=== PATIENT | male | born 1935 | race Caucasian/White ===

== ENCOUNTER 2016-06-26 10:20 | Outpatient (CLI) | payer MEDICARE, OTHER | END 2016-06-26 10:21 | disposition home or self-care (01) | DX: Z79.01 Long term (current) use of anticoagulants (principal) ==

== ENCOUNTER 2016-07-02 10:27 | Outpatient (CLI) | payer MEDICARE, OTHER | END 2016-07-02 10:28 | disposition home or self-care (01) | DX: Z79.01 Long term (current) use of anticoagulants (principal) ==

== ENCOUNTER 2016-07-09 09:30 | Outpatient (CLI) | payer MEDICARE, OTHER | END 2016-07-09 09:31 | disposition home or self-care (01) | DX: Z79.01 Long term (current) use of anticoagulants (principal) ==

== ENCOUNTER 2016-07-11 10:40 | Day surgery (SDC) | payer MEDICARE, OTHER ==
[2016-07-11] MEDS ORDERED: LACTATED RINGERS 500 ML IV ONE (11:11)
[2016-07-11] MEDS ORDERED: TROPICAMIDE 1% OPHTH 2 ML DROPS OPTH ONE (11:15)
[2016-07-11] MEDS ORDERED: KETOROLAC 0.45% OPHTH DROPS OPTH ONE (11:15)
[2016-07-11] MEDS ORDERED: CYCLOPENTOLATE 1% OPHTH DROPS 2 ML OPTH ONE (11:15)
[2016-07-11] MEDS ORDERED: MIDAZOLAM 2 MG/2 ML VIAL IVP ONE (12:00)
[2016-07-11] MEDS ORDERED: LIDOCAINE-MPF 2% 5 ML VIAL IM ONE (12:00)
[2016-07-11] MEDS ORDERED: METOPROLOL 5 MG/5 ML VIAL IVP ONE (12:00)
[2016-07-11] MEDS ORDERED: PROPOFOL 200 MG/20 ML VIAL IVP ONE (12:00)
[2016-07-11] MEDS ORDERED: EPINEPHrine 1 MG/ML AMP IO ONE (12:12)
[2016-07-11] MEDS ORDERED: BRIMONIDINE 0.2% OPHTH DROPS 5 ML OPTH ONE (12:12)
[2016-07-11] MEDS ORDERED: levoFLOXacin 0.5% OPHTH DROPS 5 ML OPTH ONE (12:12)
[2016-07-11] MEDS ORDERED: PROPARACAINE 0.5% OPHTH DROPS 15 ML OPTH ONE (12:12)
[2016-07-11] MEDS ORDERED: TETRACAINE OPHTH DROPS 2 ML OPTH ONE (12:13)
[2016-07-11] MEDS ORDERED: CHONDR SULF/HYALURONATE SYRINGE IO ONE (12:13)
[2016-07-11] MEDS ORDERED: BSS/LIDOCAINE/EPINEPHRINE 1 ML SYRINGE IO ONE (12:13)
[2016-07-11] MEDS ORDERED: LACTATED RINGERS 1,000 ML IV ONE (12:25)
== END 2016-07-11 10:41 | disposition home or self-care (01) ==
PROC: 08RJ3JZ Replacement of Right Lens with Synthetic Substitute, Percutaneous Approach (ICD-10-PCS; principal; 2016-07-11 11:40)
DX: H25.11 Age-related nuclear cataract, right eye (principal); I10 Essential (primary) hypertension; Z87.891 Personal history of nicotine dependence; Z86.718 Personal history of other venous thrombosis and embolism
CPT/HCPCS: 66984; J7120

== ENCOUNTER 2016-07-16 10:05 | Outpatient (CLI) | payer MEDICARE, OTHER | END 2016-07-16 10:06 | disposition home or self-care (01) | DX: Z79.01 Long term (current) use of anticoagulants (principal) ==

== ENCOUNTER 2016-07-23 11:13 | Outpatient (CLI) | payer MEDICARE, OTHER | END 2016-07-23 11:14 | disposition home or self-care (01) | DX: Z79.01 Long term (current) use of anticoagulants (principal) ==

== ENCOUNTER 2016-07-31 09:45 | Outpatient (CLI) | payer MEDICARE, OTHER | END 2016-07-31 09:46 | disposition home or self-care (01) | DX: Z79.01 Long term (current) use of anticoagulants (principal) ==

== ENCOUNTER 2016-08-01 12:00 | Day surgery (SDC) | payer MEDICARE, OTHER ==
[~2016-08-01 12:00] MED LIST: MIDAZOLAM 2 MG/2 ML VIAL IVP ONE
[2016-08-01] MEDS ORDERED: LACTATED RINGERS 500 ML IV ONE (12:08)
[2016-08-01] MEDS ORDERED: KETOROLAC 0.45% OPHTH DROPS OPTH ONE (12:20)
[2016-08-01] MEDS ORDERED: CYCLOPENTOLATE 1% OPHTH DROPS 2 ML OPTH ONE (12:20)
[2016-08-01] MEDS ORDERED: TROPICAMIDE 1% OPHTH 2 ML DROPS OPTH ONE (12:20)
[2016-08-01] MEDS ORDERED: EPINEPHrine 1 MG/ML AMP IO ONE (12:43)
[2016-08-01] MEDS ORDERED: TETRACAINE OPHTH DROPS 2 ML OPTH ONE (12:43)
[2016-08-01] MEDS ORDERED: PROPARACAINE 0.5% OPHTH DROPS 15 ML OPTH ONE (12:43)
[2016-08-01] MEDS ORDERED: levoFLOXacin 0.5% OPHTH DROPS 5 ML OPTH ONE (12:43)
[2016-08-01] MEDS ORDERED: BSS/LIDOCAINE/EPINEPHRINE 1 ML SYRINGE IO ONE (12:43)
[2016-08-01] MEDS ORDERED: BRIMONIDINE 0.2% OPHTH DROPS 5 ML OPTH ONE (12:43)
[2016-08-01] MEDS ORDERED: CHONDR SULF/HYALURONATE SYRINGE IO ONE (12:43)
[2016-08-01] MEDS ORDERED: MIDAZOLAM 2 MG/2 ML VIAL IVP ONE (12:45)
== END 2016-08-01 12:01 | disposition home or self-care (01) ==
PROC: 08RK3JZ Replacement of Left Lens with Synthetic Substitute, Percutaneous Approach (ICD-10-PCS; principal; 2016-08-01 13:00)
DX: H25.12 Age-related nuclear cataract, left eye (principal); J44.9 Chronic obstructive pulmonary disease, unspecified; I12.9 Hypertensive chronic kidney disease with stage 1 through stage 4 chronic kidney disease, or unspecified chronic kidney disease; N18.3 Chronic kidney disease, stage 3 (moderate); R05 Cough; Z86.718 Personal history of other venous thrombosis and embolism; Z79.01 Long term (current) use of anticoagulants; Z87.891 Personal history of nicotine dependence; Z99.2 Dependence on renal dialysis
CPT/HCPCS: 66984; V2632; V2787

== ENCOUNTER 2016-08-06 10:29 | Outpatient (CLI) | payer MEDICARE, OTHER | END 2016-08-06 10:30 | LOC: LAB.S 10:29 | PROVIDERS: ATTEND Family Medicine | DX: Z79.01 Long term (current) use of anticoagulants (principal) | CPT/HCPCS: 85610 ==

== ENCOUNTER 2016-08-08 09:46 | Outpatient (CLI) | payer MEDICARE, OTHER | END 2016-08-08 09:47 | disposition home or self-care (01) | DX: N18.4 Chronic kidney disease, stage 4 (severe) (principal); D63.1 Anemia in chronic kidney disease; N25.81 Secondary hyperparathyroidism of renal origin; E78.5 Hyperlipidemia, unspecified; R31.9 Hematuria, unspecified; R80.9 Proteinuria, unspecified; E55.9 Vitamin D deficiency, unspecified; I48.91 Unspecified atrial fibrillation; I42.9 Cardiomyopathy, unspecified; N17.9 Acute kidney failure, unspecified ==

== ENCOUNTER 2016-08-13 10:39 | Outpatient (CLI) | payer MEDICARE, OTHER | END 2016-08-13 10:40 | disposition home or self-care (01) | DX: Z79.01 Long term (current) use of anticoagulants (principal) ==

== ENCOUNTER 2016-08-20 09:10 | Outpatient (CLI) | payer MEDICARE, OTHER | END 2016-08-20 09:11 | disposition home or self-care (01) | DX: Z79.01 Long term (current) use of anticoagulants (principal) ==

== ENCOUNTER 2016-08-27 14:09 | Outpatient (CLI) | payer MEDICARE, OTHER | END 2016-08-27 23:59 | LOC: LAB.S 14:09 | PROVIDERS: ATTEND Family Medicine | DX: Z79.01 Long term (current) use of anticoagulants (principal) | CPT/HCPCS: 85610 ==

== ENCOUNTER 2016-09-03 14:11 | Outpatient (CLI) | payer MEDICARE, OTHER | END 2016-09-03 14:12 | disposition home or self-care (01) | LOC: LAB.S 14:11 | PROVIDERS: ATTEND Family Medicine | DX: Z79.01 Long term (current) use of anticoagulants (principal) | CPT/HCPCS: 85610 ==

== ENCOUNTER 2016-09-11 09:08 | Outpatient (CLI) | payer MEDICARE, OTHER | END 2016-09-11 09:09 | disposition home or self-care (01) | DX: Z79.01 Long term (current) use of anticoagulants (principal) ==

== ENCOUNTER 2016-09-17 10:26 | Outpatient (CLI) | payer MEDICARE, OTHER | END 2016-09-17 10:27 | disposition home or self-care (01) | DX: Z79.01 Long term (current) use of anticoagulants (principal) ==

== ENCOUNTER 2016-09-24 08:00 | Outpatient (CLI) | payer MEDICARE, OTHER | END 2016-09-24 08:01 | disposition home or self-care (01) | DX: Z79.01 Long term (current) use of anticoagulants (principal) ==

== ENCOUNTER 2016-10-01 08:00 | Outpatient (CLI) | payer MEDICARE, OTHER | END 2016-10-01 08:01 | DX: Z79.01 Long term (current) use of anticoagulants (principal) ==

== ENCOUNTER 2016-10-08 09:59 | Outpatient (CLI) | payer MEDICARE, OTHER | END 2016-10-08 10:00 | disposition home or self-care (01) | DX: Z79.01 Long term (current) use of anticoagulants (principal) ==

== ENCOUNTER 2016-10-15 09:21 | Outpatient (CLI) | payer MEDICARE, OTHER | END 2016-10-15 09:22 | DX: Z79.01 Long term (current) use of anticoagulants (principal) ==

== ENCOUNTER 2016-10-22 08:40 | Outpatient (CLI) | payer MEDICARE, OTHER | END 2016-10-22 08:41 | DX: Z79.01 Long term (current) use of anticoagulants (principal) ==

== ENCOUNTER 2016-11-05 13:56 | Outpatient (CLI) | payer MEDICARE, OTHER | END 2016-11-05 13:57 | disposition home or self-care (01) | LOC: LAB.S 13:56 | PROVIDERS: ATTEND Family Medicine | DX: Z79.01 Long term (current) use of anticoagulants (principal) | CPT/HCPCS: 85610 ==

== ENCOUNTER 2016-11-12 13:43 | Outpatient (CLI) | payer MEDICARE, OTHER | END 2016-11-12 13:44 | disposition home or self-care (01) | LOC: LAB.S 13:43 | PROVIDERS: ATTEND Family Medicine | DX: Z79.01 Long term (current) use of anticoagulants (principal) | CPT/HCPCS: 85610 ==

== ENCOUNTER 2016-11-20 09:01 | Outpatient (CLI) | payer MEDICARE, OTHER | END 2016-11-20 09:02 | disposition home or self-care (01) | LOC: LAB.F 09:01 | PROVIDERS: ATTEND Family Medicine | DX: Z79.01 Long term (current) use of anticoagulants (principal) | CPT/HCPCS: 85610 ==

== ENCOUNTER 2016-11-26 08:49 | Outpatient (CLI) | payer MEDICARE, OTHER | END 2016-11-26 23:59 | disposition home or self-care (01) | LOC: LAB.S 08:49 | PROVIDERS: ATTEND Family Medicine | DX: Z79.01 Long term (current) use of anticoagulants (principal) | CPT/HCPCS: 85610 ==

== ENCOUNTER 2016-12-03 11:13 | Outpatient (CLI) | payer MEDICARE, OTHER | END 2016-12-03 23:59 | disposition home or self-care (01) | LOC: LAB.S 11:13 | PROVIDERS: ATTEND Family Medicine | DX: Z79.01 Long term (current) use of anticoagulants (principal) | CPT/HCPCS: 85610 ==

== ENCOUNTER 2016-12-10 15:10 | Outpatient (CLI) | payer MEDICARE, OTHER | END 2016-12-10 15:11 | disposition home or self-care (01) | LOC: LAB.S 15:10 | PROVIDERS: ATTEND Family Medicine | DX: Z79.01 Long term (current) use of anticoagulants (principal) | CPT/HCPCS: 85610 ==

== ENCOUNTER 2016-12-17 13:19 | Outpatient (CLI) | payer MEDICARE, OTHER | END 2016-12-17 13:20 | disposition home or self-care (01) | LOC: LAB.S 13:19 | PROVIDERS: ATTEND Family Medicine | DX: Z79.01 Long term (current) use of anticoagulants (principal) | CPT/HCPCS: 85610 ==

== ENCOUNTER 2016-12-24 11:18 | Outpatient (CLI) | payer MEDICARE, OTHER | END 2016-12-24 11:19 | disposition home or self-care (01) | LOC: LAB.S 11:18 | PROVIDERS: ATTEND Family Medicine | DX: Z79.01 Long term (current) use of anticoagulants (principal) | CPT/HCPCS: 85610 ==

== ENCOUNTER 2016-12-31 10:10 | Outpatient (CLI) | payer MEDICARE, OTHER | END 2016-12-31 10:11 | disposition home or self-care (01) | DX: Z79.01 Long term (current) use of anticoagulants (principal) ==

== ENCOUNTER 2017-01-07 07:07 | Outpatient (CLI) | payer MEDICARE, OTHER ==
[2017-01-07 18:42] LABS: BASOPHILS # (AUTO) 0.1 10^3/uL (0.0-0.1); BASOPHILS % (AUTO) 1.2 %; EOSINOPHILS # (AUTO) 0.2 10^3/uL (0.0-0.7); EOSINOPHILS % (AUTO) 3.1 %; HGB - HEMOGLOBIN 9.7 g/dL (14.0-18.0); MEAN CORPUSCULAR HGB CONC 33.3 g/dL (32.0-36.0); MEAN CORPUSCULAR VOLUME 105.2 fL (80.0-94.0); MEAN PLATELET VOLUME 9.5 fL (7.4-11.4); MONOCYTES # (AUTO) 0.8 10^3/uL (0.0-1.0); MONOCYTES % (AUTO) 16.1 %; NEUTROPHILS % (AUTO) 59.6 %; NUCLEATED RED BLOOD CELLS AUTO 0.1 /100WBC; RED BLOOD COUNT 2.76 10^6/uL (4.70-6.10); RED CELL DISTRIBUTION WIDTH 13.2 % (12.0-15.0); UNCORRECTED WHITE BLOOD COUNT 5.1 x10^3/uL; WHITE BLOOD COUNT 5.1 x10^3/uL (4.8-10.8)
[2017-01-07 19:06] LABS: ALBUMIN/GLOBULIN RATIO 0.9 (1.0-2.2); BILIRUBIN,TOTAL 0.5 mg/dL (0.2-1.0); CALCIUM 8.4 mg/dL (8.5-10.3); CREATININE 3.2 mg/dL (0.6-1.2)
== END 2017-01-07 07:08 | disposition home or self-care (01) ==
LOC: LAB.S 07:07
PROVIDERS: ATTEND Family Medicine
DX: N18.4 Chronic kidney disease, stage 4 (severe) (principal); D63.1 Anemia in chronic kidney disease; Z79.01 Long term (current) use of anticoagulants
CPT/HCPCS: 36415; 80053; 82570; 84156; 85025; 85610

== ENCOUNTER 2017-01-07 07:10 | Outpatient (CLI) | payer MEDICARE, OTHER | END 2017-01-07 07:11 | disposition home or self-care (01) | LOC: LAB.S 07:10 | PROVIDERS: ATTEND Internal Medicine Nephrology | DX: Z53.9 Procedure and treatment not carried out, unspecified reason (principal) | CPT/HCPCS: 36415; 80053; 82570; 84156; 85025 ==

== ENCOUNTER 2017-01-11 18:23 | Emergency (ER) | payer MEDICARE, OTHER ==
--- NOTE | 2017-01-11 19:08 | ED Physician Documentation ---
PD HPI ABD PAIN - Stated complaint Stated Complaint: ABD PX - Chief complaint Chief Complaint: Abd Pain - History obtained from History obtained from: Patient - History of Present Illness Timing - onset: How many days ago (3) Timing - duration: Days (3) Timing - details: Intermittant Pain level max: 8 Pain level now: 0 Quality: Aching, Pain Location: Other (L flank) Improved by: Other (nothing) Worsened by: Other (nothing) Associated symptoms: Dysuria ("like squigglies"). No: Fever, Nausea, Vomiting, Hematemesis, Diarrhea, Constipation, Melena, Hematochezia, Hematuria, Chest pain , Dizzy, Near syncope / syncope, Loss of appetite Similar symptoms before: Has not had sx before Recently seen: Not recently seen Review of Systems Ten Systems: 10 systems reviewed and negative Constitutional: denies: Fever, Chills Ears: denies: Ear pain Nose: denies: Rhinorrhea / runny nose, Congestion Throat: denies: Sore throat Cardiac: denies: Chest pain / pressure Respiratory: denies: Cough GI: denies: Nausea, Vomiting, Diarrhea Skin: denies: Rash Musculoskeletal: denies: Neck pain, Back pain Neurologic: denies: Headache PD PAST MEDICAL HISTORY - Past Medical History Cardiovascular: Hypertension Respiratory: None Endocrine/Autoimmune: None GI: None : Renal insuffiency HEENT: Chronic vision loss, Chronic hearing loss Psych: None Musculoskeletal: None Derm: None - Past Surgical History Past Surgical History: Yes General: Colonoscopy, Other - Present Medications Home Medications: Ambulatory Orders Medication Instructions Recorded Confirmed Warfarin Sodium [Coumadin] 04/16/14 04/16/14 Amlodipine Besylate [Norvasc] 2.5 mg PO DAILY 07/11/16 08/01/16 Calcium Acetate 667 mg PO DAILY 07/11/16 08/01/16 Carvedilol 25 mg PO DAILY 07/11/16 08/01/16 Finasteride 5 mg PO DAILY 07/11/16 08/01/16 Furosemide 20 mg PO DAILY 07/11/16 08/01/16 Multivitamin [Multivitamins] 1 each PO DAILY 07/11/16 08/01/16 Sodium Bicarbonate 650 mg PO DAILY 07/11/16 08/01/16 Ubidecarenone/Vitamin E Mixed 1 07/11/16 [Oba43-Enr E 100 mg-10 Unit Sfg] Warfarin [Coumadin] 2 mg PO DAILY 07/11/16 08/01/16 Hydrocodone/Acetaminophen 1 - 2 each PO Q6H PRN #10 tablet 01/11/17 [Hydrocodon-Acetaminophen 5-325] - Allergies Allergies/Adverse Reactions: Allergies Allergy/AdvReac Type Severity Reaction Status Date / Time No Known Drug Allergies Allergy Verified 08/01/16 12:17 - Social History Does the pt smoke?: No Smoking Status: Never smoker Does the pt drink ETOH?: No Does the pt have substance abuse?: No - Immunizations Immunizations are current?: No - POLST Patient has POLST: No PD ED PE NORMAL - Vitals Vital signs reviewed: Yes - General General: Alert and oriented X 3, No acute distress - HEENT HEENT: Moist mucous membranes - Neck Neck: Supple, no meningeal sign - Cardiac Cardiac: RRR - Respiratory Respiratory: No respiratory distress, Clear bilaterally - Abdomen Abdomen: Soft, Non tender, Non distended - Back Back: No CVA TTP, No spinal TTP - Derm Derm: Warm and dry - Neuro Neuro: Alert and oriented X 3 - Psych Psych: Normal mood, Normal affect Results - Vitals Vitals: Vital Signs - 24 hr 01/11/17 01/11/17 18:33 21:05 Temperature 36.3 C L Heart Rate 73 63 Respiratory 16 16 Rate Blood Pressure 124/48 L 131/54 H O2 Saturation 98 97 Oxygen O2 Source Room air - Labs Labs: Laboratory Tests 01/11/17 01/11/17 01/11/17 19:00 19:00 19:00 WBC 6.5 RBC 3.01 L Hgb 10.4 L Hct 31.3 L MCV 104.2 H MCH 34.6 H MCHC 33.2 RDW 13.3 Plt Count 150 MPV 9.1 Neut # 4.7 Lymph # 0.8 L [place] # 0.8 Eos # 0.1 Baso # 0.1 Absolute Nucleated RBC 0.00 Nucleated RBCs 0.0 Sodium 137 Potassium 4.4 Chloride 113 H Carbon Dioxide 15 L Anion Gap 9.0 BUN 68 H Creatinine 4.2 H Estimated GFR (MDRD) 14 L Glucose 100 Calcium 8.3 L Total Bilirubin 0.8 AST 20 ALT 13 Alkaline Phosphatase 48 Total Protein 7.0 Albumin 3.3 Globulin 3.7 Albumin/Globulin Ratio 0.9 L Lipase 26 Urine Color YELLOW Urine Clarity CLEAR Urine pH 5.5 Ur Specific [place] 1.015 Urine Protein TRACE Urine Glucose (UA) NEGATIVE Urine Ketones NEGATIVE Urine Occult Blood TRACE-LYSE Urine Nitrite NEGATIVE Urine Bilirubin NEGATIVE Urine Urobilinogen 0.2 (NORMAL) Ur Leukocyte Esterase NEGATIVE Ur Microscopic Review NOT INDICATED Urine Culture Comments NOT INDICATED - Rads (name of study) abd/pelvis CT Radiology: Prelim report reviewed, EMP read contemporaneously, See rad report ( Bilateral nephrolithiasis. Mild bilateral renal atrophy. Two very tiny stones in the distal 2 cm left ureter causing mild obstruction. Colonic diverticulosis. Chronic lung disease. Moderate cardiomegaly. No evidence of metastatic disease. ) PD MEDICAL DECISION MAKING - ED course Complexity details: reviewed results, re-evaluated patient, considered differential, d/w patient, d/w family ED course: Patient is an 81-year-old gentleman who presents to the emergency department with left flank pain. Is found to have 2 small ureteral stones in the distal portion of the left ureter with mild obstruction. Pain resolved in the emergency department. He is very well-appearing, nontoxic. Afebrile. His CO2 is low and his creatinine is elevated, this has occurred in the past when he becomes dehydrated, therefore given IV fluids and will have him follow-up closely with his doctor to repeat these laboratory values. He will return if he worsens. Patient counseled regarding signs and symptoms for which I believe and urgent re-evaluation would be necessary. Patient with good understanding of and agreement to plan and is comfortable going home at this time This document was made in part using voice recognition software. While efforts are made to proofread this document, sound alike and grammatical errors may occur. Departure - Departure Disposition: 01 Home, Self Care Clinical Impression: Ureteral stone, Dehydration, Metabolic acidosis, Acute on chronic renal failure Condition: Good Instructions: ED Dehydration, ED Stone Renal W Colic Follow-Up: Floridalma Riddle MD [Primary Care Provider] - Within 3 Days Prescriptions: Hydrocodone/Acetaminophen [Hydrocodon-Acetaminophen 5-325] 1 - 2 each PO Q6H PRN #10 tablet PRN Reason: pain Comments: You need to have your creatinine and CO2 level rechecked on your blood work with a basic metabolic panel within 3 days, this can be ordered by your doctor.. Return sooner if you worsen. You need to increase your water intake at home. Discharge Date/Time: 01/11/17 21:25
[2017-01-11 19:18] LABS: BILIRUBIN,URINE NEGATIVE (NEGATIVE); PH,URINE 5.5 PH (5.0-7.5); UA CHARGE (STRIP ONLY) YES; UR CULTURE IF IND NOT INDICATED
[2017-01-11 19:20] LABS: BASOPHILS # (AUTO) 0.1 10^3/uL (0.0-0.1); BASOPHILS % (AUTO) 0.8 %; EOSINOPHILS # (AUTO) 0.1 10^3/uL (0.0-0.7); HCT - HEMATOCRIT 31.3 % (42.0-52.0); HGB - HEMOGLOBIN 10.4 g/dL (14.0-18.0); LYMPHOCYTES # (AUTO) 0.8 10^3/uL (1.5-3.5); LYMPHOCYTES % (AUTO) 12.7 %; MEAN CORPUSCULAR HEMOGLOBIN 34.6 pg (27.0-31.0); MEAN CORPUSCULAR HGB CONC 33.2 g/dL (32.0-36.0); MEAN CORPUSCULAR VOLUME 104.2 fL (80.0-94.0); MEAN PLATELET VOLUME 9.1 fL (7.4-11.4); MONOCYTES # (AUTO) 0.8 10^3/uL (0.0-1.0); MONOCYTES % (AUTO) 12.5 %; NEUTROPHILS # (AUTO) 4.7 10^3/uL (1.5-6.6); RED BLOOD COUNT 3.01 10^6/uL (4.70-6.10); RED CELL DISTRIBUTION WIDTH 13.3 % (12.0-15.0); UNCORRECTED WHITE BLOOD COUNT 6.5 x10^3/uL; WHITE BLOOD COUNT 6.5 x10^3/uL (4.8-10.8)
[2017-01-11 19:29] LABS: ALBUMIN/GLOBULIN RATIO 0.9 (1.0-2.2); BILIRUBIN,TOTAL 0.8 mg/dL (0.2-1.0); CALCIUM 8.3 mg/dL (8.5-10.3); CREATININE 4.2 mg/dL (0.6-1.2); POTASSIUM 4.4 mmol/L (3.5-5.0)
[2017-01-11] MEDS ORDERED: SODIUM CHLORIDE 0.9% 500 ML IV ONE (19:31)
--- NOTE | 2017-01-11 20:35 | CT Preliminary Report ---
Exam: CT Abdomen/Pelvis W/O IMPRESSION: 1. Bilateral nephrolithiasis. Mild bilateral renal atrophy. 2. 2 very tiny stones in the distal 2 cm left ureter causing mild obstruction. 3. Colonic diverticulosis. 4. Chronic lung disease. 5. Moderate cardiomegaly.. 6. No evidence of metastatic disease. [facility] SITE ID: [id number]
[2017-01-11] MEDS ORDERED: HYDROcod/ACETAM 5/325 MG TABLET PO STA (20:49)
--- NOTE | 2017-01-11 21:01 | CT Report ---
EXAM: CT ABDOMEN AND PELVIS EXAM DATE: 01/11/2017 07:36 p.m. CLINICAL HISTORY: Esophageal cancer diagnosed 6-7 years ago. Remote bowel resection. Chronic renal di sease. Patient presents now with left flank pain. COMPARISONS: None. TECHNIQUE: Routine helical CT imaging was performed through the abdomen and pelvis. IV contrast: None . Enteric contrast: No. Reconstructions: Coronal and sagittal. In accordance with CT protocol optimization, one or more of the following dose reduction techniques w ere utilized for this exam: automated exposure control, adjustment of mA and/or KV based on patient s ize, or use of iterative reconstructive technique. FINDINGS: Lung Bases: Chronic lung disease. Moderate cardiomegaly. Moderate hiatal hernia. Liver: Normal. No masses. Gallbladder/Bile Ducts: Unremarkable. Spleen: Normal. Pancreas: Normal. Adrenal Glands: Normal. Kidneys: Mild bilateral renal atrophy. Multiple 1 and 2 mm stones, both kidneys. No right hydronephrosis. Right ureter is small without calcifications. Mild left hydronephrosis and moderate left peripelvic edema. Mild dilatation of the left ureter. 2 mm stone in the distal left ureter, 1 cm from the ureterovesica l junction, axial image 128 coronal image 52. An additional stone in the distal left ureter, 1 cm proximal to the larger stone, axial image 125 cor onal image 56. Peritoneal Cavity/Bowel: Diverticula off the colon. No free fluid, free air or adenopathy. No masses or acute inflammatory process. The appendix is well visualized and normal. Pelvic Organs: Normal. The bladder and visualized pelvic organs are within normal limits. Vasculature: No aneurysms or other significant abnormality. Infrarenal abdominal aorta measures 2.6 c m in maximum dimension. Bones: No significant abnormality. Other: None. IMPRESSION: 1. Bilateral nephrolithiasis. Mild bilateral renal atrophy. 2. Two very tiny stones in the distal 2 cm left ureter causing mild obstruction. 3. Colonic diverticulosis. 4. Chronic lung disease. 5. Moderate cardiomegaly. 6. No evidence of metastatic disease. [facility] Referring Provider Line: [phone] SITE ID: [id number]
[2017-01-11 21:05] VITALS: BP 131/54
[2017-01-11] MEDS ORDERED: HYDROcod/ACETAM 5/325 MG TABLET ONE (21:15)
== END 2017-01-11 21:25 | disposition home or self-care (01) ==
LOC: ED 18:23
DX: R10.32 Left lower quadrant pain (principal); N20.1 Calculus of ureter; E86.0 Dehydration; E87.2 Acidosis; I12.9 Hypertensive chronic kidney disease with stage 1 through stage 4 chronic kidney disease, or unspecified chronic kidney disease; N18.9 Chronic kidney disease, unspecified; N17.9 Acute kidney failure, unspecified; Z79.01 Long term (current) use of anticoagulants
CPT/HCPCS: 36415; 74176; 80053; 81003; 83690; 85025; 99283; 99285; A9270; 81001; 87086

== ENCOUNTER 2017-01-14 08:00 | Outpatient (CLI) | payer MEDICARE, OTHER | END 2017-01-14 08:01 | disposition home or self-care (01) | LOC: LAB.F 08:00 | PROVIDERS: ATTEND Family Medicine | DX: Z79.01 Long term (current) use of anticoagulants (principal) | CPT/HCPCS: 85610 ==

== ENCOUNTER 2017-01-21 08:00 | Outpatient (CLI) | payer MEDICARE, OTHER | END 2017-01-21 08:01 | disposition home or self-care (01) | LOC: LAB.S 08:00 | PROVIDERS: ATTEND Family Medicine | DX: Z79.01 Long term (current) use of anticoagulants (principal) | CPT/HCPCS: 85610 ==

== ENCOUNTER 2017-01-28 08:00 | Outpatient (CLI) | payer MEDICARE, OTHER | END 2017-01-28 08:01 | disposition home or self-care (01) | LOC: LAB.S 08:00 | PROVIDERS: ATTEND Family Medicine | DX: Z79.01 Long term (current) use of anticoagulants (principal) | CPT/HCPCS: 85610 ==

== ENCOUNTER 2017-02-04 08:00 | Outpatient (CLI) | payer MEDICARE, OTHER | END 2017-02-04 08:01 | LOC: LAB.S 08:00 | PROVIDERS: ATTEND Family Medicine | DX: Z79.01 Long term (current) use of anticoagulants (principal) | CPT/HCPCS: 85610 ==

== ENCOUNTER 2017-02-11 11:01 | Outpatient (CLI) | payer MEDICARE, OTHER | END 2017-02-11 11:02 | disposition home or self-care (01) | LOC: LAB.S 11:01 | PROVIDERS: ATTEND Family Medicine | DX: Z79.01 Long term (current) use of anticoagulants (principal) | CPT/HCPCS: 85610 ==

== ENCOUNTER 2017-02-18 10:05 | Outpatient (CLI) | payer MEDICARE, OTHER | END 2017-02-18 10:06 | disposition home or self-care (01) | LOC: LAB.S 10:05 | PROVIDERS: ATTEND Family Medicine | DX: Z79.01 Long term (current) use of anticoagulants (principal) | CPT/HCPCS: 85610 ==

== ENCOUNTER 2017-02-26 13:58 | Outpatient (CLI) | payer MEDICARE, OTHER | END 2017-02-26 13:59 | disposition home or self-care (01) | LOC: LAB.F 13:58 | PROVIDERS: ATTEND Family Medicine | DX: Z79.01 Long term (current) use of anticoagulants (principal) | CPT/HCPCS: 85610 ==

== ENCOUNTER 2017-03-04 13:38 | Outpatient (CLI) | payer MEDICARE, OTHER | END 2017-03-04 13:39 | disposition home or self-care (01) | LOC: LAB.S 13:38 | PROVIDERS: ATTEND Family Medicine | DX: Z79.01 Long term (current) use of anticoagulants (principal) | CPT/HCPCS: 85610 ==

== ENCOUNTER 2017-03-11 08:00 | Outpatient (CLI) | payer MEDICARE, OTHER | END 2017-03-11 08:01 | disposition home or self-care (01) | LOC: LAB.S 08:00 | PROVIDERS: ATTEND Family Medicine | DX: Z79.01 Long term (current) use of anticoagulants (principal) | CPT/HCPCS: 85610 ==

== ENCOUNTER 2017-03-18 14:05 | Outpatient (CLI) | payer MEDICARE, OTHER | END 2017-03-18 14:06 | disposition home or self-care (01) | LOC: LAB.S 14:05 | PROVIDERS: ATTEND Family Medicine | DX: Z79.01 Long term (current) use of anticoagulants (principal) | CPT/HCPCS: 85610 ==

== ENCOUNTER 2017-03-25 11:47 | Emergency (ER) | payer MEDICARE, OTHER ==
--- NOTE | 2017-03-25 13:59 | ED Physician Documentation ---
PD HPI ABD PAIN - Stated complaint Stated Complaint: STOMACH PX - Chief complaint Chief Complaint: Abd Pain - History obtained from History obtained from: Patient, Family - History of Present Illness Timing - onset: Yesterday Timing - duration: Hours Timing - details: Abrupt onset, Still present, Waxing and waning Quality: Sharp, Pain Location: RUQ Radiation: Right flank Improved by: Other (nothing) Worsened by: Other (nothing) Associated symptoms: Nausea. No: Vomiting Similar symptoms before: Diagnosis (kidneystones) Recently seen: Clinic - Additional information Additional information: 82-year-old male with a history of kidney stones and chronic kidney disease has developed pain on the right side. He states his pain is similar to what he had in December when he had kidney stone and was seen here. He took some pain medication he had left over from that prior incident and this was able to get him through the night. He comes in now with severe pain in the right side that has migrated down into the right lower quadrant. Review of Systems Constitutional: denies: Fever, Chills, Myalgias Eyes: denies: Decreased vision Ears: denies: Ear pain Nose: denies: Congestion Throat: denies: Sore throat Cardiac: denies: Chest pain / pressure Respiratory: denies: Cough GI: reports: Abdominal Pain, Nausea. denies: Vomiting, Constipation, Diarrhea : denies: Dysuria, Frequency Skin: denies: Rash Musculoskeletal: reports: Back pain. denies: Neck pain PD PAST MEDICAL HISTORY - Past Medical History Past Medical History: Yes Cardiovascular: Hypertension Respiratory: None Endocrine/Autoimmune: None GI: None : Renal insuffiency HEENT: Chronic vision loss, Chronic hearing loss Psych: None Musculoskeletal: None Derm: None - Past Surgical History Past Surgical History: Yes General: Colonoscopy, Other - Present Medications Home Medications: Ambulatory Orders Medication Instructions Recorded Confirmed Warfarin Sodium [Coumadin] 04/16/14 04/16/14 Amlodipine Besylate [Norvasc] 2.5 mg PO DAILY 07/11/16 08/01/16 Calcium Acetate 667 mg PO DAILY 07/11/16 08/01/16 Carvedilol 25 mg PO DAILY 07/11/16 08/01/16 Finasteride 5 mg PO DAILY 07/11/16 08/01/16 Furosemide 20 mg PO DAILY 07/11/16 08/01/16 Multivitamin [Multivitamins] 1 each PO DAILY 07/11/16 08/01/16 Sodium Bicarbonate 650 mg PO DAILY 07/11/16 08/01/16 Ubidecarenone/Vitamin E Mixed 1 07/11/16 [Huh34-Ual E 100 mg-10 Unit Sfg] Warfarin [Coumadin] 2 mg PO DAILY 07/11/16 08/01/16 Hydrocodone/Acetaminophen 1 - 2 each PO Q6H PRN #10 tablet 01/11/17 [Hydrocodon-Acetaminophen 5-325] HYDROcod/ACETAM 5/325 [[place] 5/325] 1 - 2 ea PO Q6H PRN #20 tablet 03/25/17 - Allergies Allergies/Adverse Reactions: Allergies Allergy/AdvReac Type Severity Reaction Status Date / Time No Known Drug Allergies Allergy Verified 08/01/16 12:17 - Social History Does the pt smoke?: No Smoking Status: Never smoker Does the pt drink ETOH?: No Does the pt have substance abuse?: No - Immunizations Immunizations are current?: No - POLST Patient has POLST: No PD ED PE NORMAL - Vitals Vital signs reviewed: Yes (hypertensive ) - General General: Alert and oriented X 3, No acute distress, Well developed/nourished - HEENT HEENT: Atraumatic - Respiratory Respiratory: No respiratory distress - Abdomen Abdomen: Soft, Non tender, No organomegaly - Back Back: No CVA TTP, No spinal TTP - Derm Derm: Normal color, Warm and dry, No rash - Extremities Extremities: No deformity, No edema - Neuro Neuro: Alert and oriented X 3, No motor deficit, No sensory deficit, Normal speech - Psych Psych: Normal mood, Normal affect Results - Vitals Vitals: Vital Signs - 24 hr 03/25/17 03/25/17 11:58 14:16 Temperature 36.4 C L 36.7 C Heart Rate 70 72 Respiratory 16 16 Rate Blood Pressure 165/64 H 162/62 H O2 Saturation 94 99 Oxygen O2 Source Room air - Labs Labs: Laboratory Tests 03/25/17 14:06 Urine Color YELLOW Urine Clarity CLEAR Urine pH 6.0 Ur Specific [place] 1.015 Urine Protein NEGATIVE Urine Glucose (UA) NEGATIVE Urine Ketones NEGATIVE Urine Occult Blood SMALL H Urine Nitrite NEGATIVE Urine Bilirubin NEGATIVE Urine Urobilinogen 0.2 (NORMAL) Ur Leukocyte Esterase NEGATIVE Urine RBC 0-5 Urine WBC 0-3 Ur Squamous Epith Cells RARE Squamous Urine Bacteria None Seen Ur Microscopic Review INDICATED Urine Culture Comments NOT INDICATED Procedures - Bedside sono Bedside sono by EMP: With use of bedside ultrasound the right kidney is imaged and there is evidence of hydronephrosis. The kidney is sonographically nontender. PD MEDICAL DECISION MAKING - ED course Complexity details: reviewed old records, reviewed results, re-evaluated patient , considered differential, d/w patient, d/w family ED course: 82-year-old male with a prior history of kidney stone has developed symptoms typical for him from previously and this time it is on the right side. I reviewed the patient's CT scan from December of this year which demonstrated a number of small stones in the right kidney as many as 10. There were stones in the left kidney as well. Here in the emergency department I was able to demonstrate hydronephrosis on the right kidney And I have forgot on CT scanning of the abdomen pelvis with the assumption that the stones seen recently are small and should pass without incident. I do not think the patient's pain is related to some other phenomena as he does otherwise look well. He has been able to control his pain with oral hydrocodone. His urine is checked for infection. Departure - Departure Disposition: 01 Home, Self Care Clinical Impression: Ureteral stone Instructions: ED Stone Renal W Colic Follow-Up: Your, doctor [Other] Prescriptions: HYDROcod/ACETAM 5/325 [[place] 5/325] 1 - 2 ea PO Q6H PRN #20 tablet PRN Reason: Pain
[2017-03-25 14:18] VITALS: BP 162/62
[2017-03-25 14:20] LABS: BILIRUBIN,URINE NEGATIVE (NEGATIVE)
[2017-03-25 14:21] LABS: UA w/ MICROSCOPIC CHARGE YES
[2017-03-25 14:35] LABS: WBC,URINE 0-3 /HPF (0-3)
[2017-03-25 14:36] LABS: UR CULTURE IF IND NOT INDICATED
== END 2017-03-25 14:52 | disposition home or self-care (01) ==
LOC: ED 11:47
DX: N20.1 Calculus of ureter (principal); I12.9 Hypertensive chronic kidney disease with stage 1 through stage 4 chronic kidney disease, or unspecified chronic kidney disease; N18.9 Chronic kidney disease, unspecified
CPT/HCPCS: 81001; 81003; 87086; 99283; 99284

== ENCOUNTER 2017-03-26 15:21 | Outpatient (CLI) | payer MEDICARE, OTHER | END 2017-03-26 15:22 | disposition home or self-care (01) | LOC: LAB.F 15:21 | PROVIDERS: ATTEND Family Medicine | DX: Z79.01 Long term (current) use of anticoagulants (principal) | CPT/HCPCS: 85610 ==

== ENCOUNTER 2017-04-01 08:00 | Outpatient (CLI) | payer MEDICARE, OTHER | END 2017-04-01 08:01 | LOC: LAB.S 08:00 | PROVIDERS: ATTEND Family Medicine | DX: Z79.01 Long term (current) use of anticoagulants (principal) | CPT/HCPCS: 85610 ==

== ENCOUNTER 2017-04-08 10:28 | Outpatient (CLI) | payer MEDICARE, OTHER | END 2017-04-08 10:29 | LOC: LAB.S 10:28 | PROVIDERS: ATTEND Family Medicine | DX: Z79.01 Long term (current) use of anticoagulants (principal) | CPT/HCPCS: 85610 ==

== ENCOUNTER 2017-04-15 13:53 | Outpatient (CLI) | payer MEDICARE, OTHER | END 2017-04-15 13:54 | disposition home or self-care (01) | LOC: LAB.S 13:53 | PROVIDERS: ATTEND Family Medicine | DX: Z79.01 Long term (current) use of anticoagulants (principal) | CPT/HCPCS: 85610 ==

== ENCOUNTER 2017-05-07 14:27 | Outpatient (CLI) | payer MEDICARE, OTHER | END 2017-05-07 14:28 | disposition home or self-care (01) | LOC: LAB.F 14:27 | PROVIDERS: ATTEND Family Medicine | DX: Z79.01 Long term (current) use of anticoagulants (principal) | CPT/HCPCS: 85610 ==

== ENCOUNTER 2017-05-13 15:35 | Outpatient (CLI) | payer MEDICARE, OTHER | END 2017-05-13 15:36 | disposition home or self-care (01) | LOC: LAB.S 15:35 | PROVIDERS: ATTEND Family Medicine | DX: Z79.01 Long term (current) use of anticoagulants (principal) | CPT/HCPCS: 85610 ==

== ENCOUNTER 2017-05-20 14:02 | Outpatient (CLI) | payer MEDICARE, OTHER | END 2017-05-20 14:03 | LOC: LAB.S 14:02 | PROVIDERS: ATTEND Family Medicine | DX: Z79.01 Long term (current) use of anticoagulants (principal) | CPT/HCPCS: 85610 ==

== ENCOUNTER 2017-05-27 13:24 | Outpatient (CLI) | payer MEDICARE, OTHER | END 2017-05-27 13:25 | disposition home or self-care (01) | LOC: LAB.S 13:24 | PROVIDERS: ATTEND Family Medicine | DX: Z79.01 Long term (current) use of anticoagulants (principal) | CPT/HCPCS: 85610 ==

== ENCOUNTER 2017-06-03 13:59 | Outpatient (CLI) | payer MEDICARE, OTHER | END 2017-06-03 14:00 | disposition home or self-care (01) | LOC: LAB.S 13:59 | PROVIDERS: ATTEND Family Medicine | DX: Z79.01 Long term (current) use of anticoagulants (principal) | CPT/HCPCS: 85610 ==

== ENCOUNTER 2017-06-10 08:00 | Outpatient (CLI) | payer MEDICARE, OTHER | END 2017-06-10 08:01 | disposition home or self-care (01) | LOC: LAB.S 08:00 | PROVIDERS: ATTEND Family Medicine | DX: Z79.01 Long term (current) use of anticoagulants (principal) | CPT/HCPCS: 85610 ==

== ENCOUNTER 2017-06-18 14:16 | Outpatient (CLI) | payer MEDICARE, OTHER | END 2017-06-18 14:17 | disposition home or self-care (01) | LOC: LAB.F 14:16 | PROVIDERS: ATTEND Family Medicine | DX: Z79.01 Long term (current) use of anticoagulants (principal) | CPT/HCPCS: 85610 ==

== ENCOUNTER 2017-06-25 13:48 | Outpatient (CLI) | payer MEDICARE, OTHER | END 2017-06-25 13:49 | disposition home or self-care (01) | LOC: LAB.F 13:48 | PROVIDERS: ATTEND Family Medicine | DX: Z79.01 Long term (current) use of anticoagulants (principal) | CPT/HCPCS: 85610 ==

== ENCOUNTER 2017-07-01 14:43 | Outpatient (CLI) | payer MEDICARE, OTHER | END 2017-07-01 14:44 | disposition home or self-care (01) | LOC: LAB.S 14:43 | PROVIDERS: ATTEND Family Medicine | DX: Z79.01 Long term (current) use of anticoagulants (principal) | CPT/HCPCS: 85610 ==

== ENCOUNTER 2017-07-15 08:00 | Outpatient (CLI) | payer MEDICARE, OTHER | END 2017-07-15 08:01 | disposition home or self-care (01) | LOC: LAB.S 08:00 | PROVIDERS: ATTEND Family Medicine | DX: Z79.01 Long term (current) use of anticoagulants (principal) | CPT/HCPCS: 85610 ==

== ENCOUNTER 2017-07-29 14:24 | Outpatient (CLI) | payer MEDICARE, OTHER | END 2017-07-29 14:25 | disposition home or self-care (01) | LOC: LAB.S 14:24 | PROVIDERS: ATTEND Family Medicine | DX: Z79.01 Long term (current) use of anticoagulants (principal) | CPT/HCPCS: 85610 ==

== ENCOUNTER 2017-08-13 14:32 | Outpatient (CLI) | payer MEDICARE, OTHER | END 2017-08-13 14:33 | disposition home or self-care (01) | LOC: LAB.F 14:32 | PROVIDERS: ATTEND Family Medicine | DX: Z79.01 Long term (current) use of anticoagulants (principal) | CPT/HCPCS: 85610 ==

== ENCOUNTER → 2017-08-19 | Outpatient (CLI) | payer MEDICARE, OTHER | LOC: LAB.S 08:00 | PROVIDERS: ATTEND Family Medicine | DX: Z79.01 Long term (current) use of anticoagulants (principal) | CPT/HCPCS: 85610 ==

== ENCOUNTER 2017-09-09 08:00 | Outpatient (CLI) | payer MEDICARE, OTHER | END 2017-09-09 08:01 | disposition home or self-care (01) | LOC: LAB.S 08:00 | PROVIDERS: ATTEND Family Medicine | DX: Z79.01 Long term (current) use of anticoagulants (principal) | CPT/HCPCS: 85610 ==

== ENCOUNTER 2017-09-26 09:50 | Outpatient (CLI) | payer MEDICARE, OTHER | END 2017-09-26 09:51 | disposition home or self-care (01) | LOC: LAB.F 09:50 | PROVIDERS: ATTEND Family Medicine | DX: Z79.01 Long term (current) use of anticoagulants (principal) | CPT/HCPCS: 85610 ==

== ENCOUNTER 2017-10-07 08:00 | Outpatient (CLI) | payer MEDICARE, OTHER | END 2017-10-07 08:01 | LOC: LAB.S 08:00 | PROVIDERS: ATTEND Family Medicine | DX: Z79.01 Long term (current) use of anticoagulants (principal) | CPT/HCPCS: 85610 ==

== ENCOUNTER 2017-11-04 13:38 | Outpatient (CLI) | payer MEDICARE, OTHER | END 2017-11-04 13:39 | disposition home or self-care (01) | LOC: LAB.S 13:38 | PROVIDERS: ATTEND Family Medicine | DX: Z79.01 Long term (current) use of anticoagulants (principal) | CPT/HCPCS: 85610 ==

== ENCOUNTER 2017-11-25 14:37 | Outpatient (CLI) | payer MEDICARE, OTHER | END 2017-11-25 14:38 | disposition home or self-care (01) | LOC: LAB.S 14:37 | PROVIDERS: ATTEND Family Medicine | DX: Z79.01 Long term (current) use of anticoagulants (principal) | CPT/HCPCS: 85610 ==

== ENCOUNTER 2017-12-23 15:05 | Outpatient (CLI) | payer MEDICARE, OTHER | END 2017-12-23 15:06 | LOC: LAB.S 15:05 | PROVIDERS: ATTEND Family Medicine | DX: Z79.01 Long term (current) use of anticoagulants (principal) | CPT/HCPCS: 85610 ==

== ENCOUNTER 2018-01-06 10:20 | Outpatient (CLI) | payer MEDICARE, OTHER | END 2018-01-06 10:21 | LOC: LAB.S 10:20 | PROVIDERS: ATTEND Family Medicine | DX: Z79.01 Long term (current) use of anticoagulants (principal) | CPT/HCPCS: 85610 ==

== ENCOUNTER 2018-01-13 08:00 | Outpatient (CLI) | payer MEDICARE, OTHER | END 2018-01-13 08:01 | disposition home or self-care (01) | LOC: LAB.S 08:00 | PROVIDERS: ATTEND Family Medicine | DX: Z79.01 Long term (current) use of anticoagulants (principal) | CPT/HCPCS: 85610 ==

== ENCOUNTER 2018-02-03 14:19 | Outpatient (CLI) | payer MEDICARE, OTHER | END 2018-02-03 14:20 | disposition home or self-care (01) | LOC: LAB.S 14:19 | PROVIDERS: ATTEND Family Medicine | DX: Z79.01 Long term (current) use of anticoagulants (principal) | CPT/HCPCS: 85610 ==

== ENCOUNTER 2018-02-17 09:44 | Outpatient (CLI) | payer MEDICARE, OTHER | END 2018-02-17 09:45 | disposition home or self-care (01) | LOC: LAB.S 09:44 | PROVIDERS: ATTEND Family Medicine | DX: Z79.01 Long term (current) use of anticoagulants (principal) | CPT/HCPCS: 85610 ==

== ENCOUNTER 2018-03-03 14:28 | Outpatient (CLI) | payer MEDICARE, OTHER | END 2018-03-03 14:29 | disposition home or self-care (01) | LOC: LAB.S 14:28 | PROVIDERS: ATTEND Family Medicine | DX: Z79.01 Long term (current) use of anticoagulants (principal) | CPT/HCPCS: 85610 ==

== ENCOUNTER 2018-03-24 10:47 | Outpatient (CLI) | payer MEDICARE, OTHER | END 2018-03-24 10:48 | disposition home or self-care (01) | LOC: LAB.F 10:47 | PROVIDERS: ATTEND Family Medicine | DX: Z79.01 Long term (current) use of anticoagulants (principal) | CPT/HCPCS: 85610 ==

== ENCOUNTER 2018-04-07 10:40 | Outpatient (CLI) | payer MEDICARE, OTHER | END 2018-04-07 10:41 | disposition home or self-care (01) | LOC: LAB.F 10:40 | PROVIDERS: ATTEND Family Medicine | DX: Z79.01 Long term (current) use of anticoagulants (principal) | CPT/HCPCS: 85610 ==

== ENCOUNTER 2018-04-22 10:18 | Outpatient (CLI) | payer MEDICARE, OTHER | END 2018-04-22 10:19 | disposition home or self-care (01) | LOC: LAB.F 10:18 | PROVIDERS: ATTEND Family Medicine | DX: Z79.01 Long term (current) use of anticoagulants (principal) | CPT/HCPCS: 85610 ==

== ENCOUNTER 2018-05-06 23:08 | Outpatient (CLI) | payer MEDICARE, OTHER | END 2018-05-06 23:09 | disposition EMS.NT | LOC: EMS 23:08 | PROVIDERS: ATTEND Surgery | DX: R55 Syncope and collapse (principal) ==

== ENCOUNTER 2018-06-20 11:31 | Emergency (ER) | payer MEDICARE, OTHER ==
[2018-06-20 12:52] LABS: BASOPHILS % (AUTO) 0.2 %; EOSINOPHILS # (AUTO) 0.2 10^3/uL (0.0-0.7); EOSINOPHILS % (AUTO) 2.4 %; HGB - HEMOGLOBIN 9.2 g/dL (14.0-18.0); LYMPHOCYTES # (AUTO) 0.5 10^3/uL (1.5-3.5); MEAN CORPUSCULAR HEMOGLOBIN 38.2 pg (27.0-31.0); MEAN CORPUSCULAR HGB CONC 34.4 g/dL (32.0-36.0); MEAN CORPUSCULAR VOLUME 111.3 fL (80.0-94.0); MONOCYTES # (AUTO) 0.4 10^3/uL (0.0-1.0); MONOCYTES % (AUTO) 5.8 %; NEUTROPHILS # (AUTO) 5.9 10^3/uL (1.5-6.6); NEUTROPHILS % (AUTO) 84.6 %; PLT - PLATELET COUNT 167 10^3/uL (130-450); RED CELL DISTRIBUTION WIDTH 15.6 % (12.0-15.0)
[2018-06-20 13:01] LABS: ALBUMIN/GLOBULIN RATIO 0.8 (1.0-2.2); BILIRUBIN,TOTAL 0.8 mg/dL (0.2-1.0); CALCIUM 8.1 mg/dL (8.5-10.3); CREATININE 5.7 mg/dL (0.6-1.2); TOTAL PROTEIN 6.6 g/dL (6.7-8.2)
--- NOTE | 2018-06-20 14:30 | ED Physician Documentation ---
PD HPI NVD - Stated complaint Stated Complaint: DIARRHEA - Chief complaint Chief Complaint: Abd Pain - History obtained from History obtained from: Patient, Family - History of Present Illness Timing - onset: Chronic Timing - duration: Weeks (2) Timing - details: Gradual onset, Intermittant Pain level max: 0 Pain level now: 0 Associated symptoms: No: Fever, Abdominal pain, Chest pain, Hematemesis, Melena, Hematochezia, Dizzy, Near syncope / syncope, Loss of appetite, Weight loss Contributing factors: Alcohol use. 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 Family stated that his diarrhea seems to have started when he was placed on for phosphate binding med. Patient denies any trauma, travel, food intolerance or Recent illness. Patient brought a stool specimen with him as directed by his round boner who is interested in finding out whether his diarrhea is infectious or not. Review of Systems Ten Systems: 10 systems reviewed and negative Constitutional: denies: Fever, Chills, Myalgias Cardiac: denies: Chest pain / pressure Respiratory: denies: Dyspnea, Cough GI: reports: Diarrhea. denies: Abdominal Pain, Abdominal Swelling, Nausea, Vomiting, Constipation, Hematemesis, Bloody / black stool Neurologic: denies: Generalized weakness, Near syncope PD PAST MEDICAL HISTORY - Past Medical History Past Medical History: Yes Cardiovascular: Hypertension Respiratory: None Neuro: None Endocrine/Autoimmune: None GI: None : Renal insuffiency, Other HEENT: Chronic vision loss, Chronic hearing loss Psych: None Musculoskeletal: None Derm: None Other Past Medical History: kidney failure - Past Surgical History Past Surgical History: Yes General: Colonoscopy, Other - Present Medications Home Medications: Ambulatory Orders Medication Instructions Recorded Confirmed Warfarin Sodium [Coumadin] 04/16/14 04/16/14 Amlodipine Besylate [Norvasc] 2.5 mg PO DAILY 07/11/16 08/01/16 Multivitamin [Multivitamins] 1 each PO DAILY 07/11/16 08/01/16 RX: Calcium Acetate 667 mg PO DAILY 07/11/16 08/01/16 RX: Carvedilol 25 mg PO DAILY 07/11/16 08/01/16 RX: Finasteride 5 mg PO DAILY 07/11/16 08/01/16 RX: Furosemide 20 mg PO DAILY 07/11/16 08/01/16 RX: Sodium Bicarbonate 650 mg PO DAILY 07/11/16 08/01/16 Ubidecarenone/Vitamin E Mixed 1 07/11/16 [Fyl63-Qec E 100 mg-10 Unit Sfg] Warfarin [Coumadin] 2 mg PO DAILY 07/11/16 08/01/16 Hydrocodone/Acetaminophen 1 - 2 each PO Q6H PRN #10 tablet 01/11/17 [Hydrocodon-Acetaminophen 5-325] RX: HYDROcod/ACETAM 5/325 [[place] 1 - 2 ea PO Q6H PRN #20 tablet 03/25/17 5/325] - Allergies Allergies/Adverse Reactions: Allergies Allergy/AdvReac Type Severity Reaction Status Date / Time No Known Drug Allergies Allergy Verified 06/20/18 12:09 - Social History Does the pt smoke?: No Smoking Status: Never smoker Does the pt drink ETOH?: No Does the pt have substance abuse?: No - Immunizations Immunizations are current?: No - POLST Patient has POLST: No PD ED PE NORMAL - Vitals Vital signs reviewed: Yes - General General: Alert and oriented X 3, No acute distress, Well developed/nourished, Other (Thin appearing) - HEENT HEENT: Moist mucous membranes, Pharynx benign - Neck Neck: Supple, no meningeal sign - Cardiac Cardiac: RRR, Strong equal pulses, Other (Grade 3 systolic and murmur) - Respiratory Respiratory: No respiratory distress, Clear bilaterally - Abdomen Abdomen: Normal bowel sounds, Soft, Non tender, Non distended, No organomegaly - Back Back: No CVA TTP, No spinal TTP - Derm Derm: Normal color, Warm and dry - Extremities Extremities: No deformity, No tenderness to palpate, Normal ROM s pain, No edema - Neuro Neuro: Alert and oriented X 3 - Psych Psych: Normal mood, Normal affect Results - Vitals Vitals: Vital Signs - 24 hr 06/20/18 06/20/18 06/20/18 12:02 14:00 17:33 Temperature 37.1 C 36.7 C 36.9 C Heart Rate 84 80 82 Respiratory 16 16 18 Rate Blood Pressure 118/59 L 119/61 124/53 L O2 Saturation 95 96 97 Oxygen O2 Source Room air - Labs Labs: Microbiology 06/20/18 14:43 Clostridium difficile (PCR) - Final Stool 06/20/18 14:35 Campylobacter Antigen Assay - Final Stool Laboratory Tests 06/20/18 06/20/18 12:43 12:43 WBC 7.0 RBC 2.40 L Hgb 9.2 L Hct 26.7 L MCV 111.3 H MCH 38.2 H MCHC 34.4 RDW 15.6 H Plt Count 167 MPV 9.0 Neut # (Auto) 5.9 Lymph # (Auto) 0.5 L [place] # (Auto) 0.4 Eos # (Auto) 0.2 Baso # (Auto) 0.0 Absolute Nucleated RBC 0.00 Nucleated RBC % 0.0 Sodium 135 Potassium 3.4 L Chloride 99 L Carbon Dioxide 25 Anion Gap 11.0 BUN 33 H Creatinine 5.7 H Estimated GFR (MDRD) 10 L Glucose 94 Calcium 8.1 L Total Bilirubin 0.8 AST 15 ALT 10 Alkaline Phosphatase 51 Total Protein 6.6 L Albumin 3.0 L Globulin 3.6 Albumin/Globulin Ratio 0.8 L Lipase 23 PD MEDICAL DECISION MAKING - ED course Complexity details: reviewed results, re-evaluated patient, considered differential (Chronic diarrhea, electrolyte imbalance, dehydration, obstruction), d/w patient, d/w family, d/w risk management consultant ED course: 1526 radiologist instructional paraprofessional informed me there is an L1 compression fracture from the CT scan. 165 patient and inform of test results including the inci dental finding of compression fracture. Patient stated he had fallen may be a week ago but he is not having any back pain. Patient states that his diarrhea is 2-4 times a day but nothing today. Patient states he has been taking Imodium twice a day and has been helping form his stools. Patient wants to go home. His diet was discussed. He also stated he has a GI appointment on Saturday Or 5 days from now. Departure - Departure Disposition: Home, Self Care Clinical Impression: Diarrhea Qualifiers: Diarrhea type: unspecified type Qualified Code(s): R19.7 - Diarrhea, unspecified Compression fracture of first lumbar vertebra Qualifiers: Encounter type: initial encounter Fracture type: closed Qualified Code(s): S32.010A - Wedge compression fracture of first lumbar vertebra, initial encounter for closed fracture Condition: Stable Instructions: ED Fx Comp Vertebral, ED Diet Vomiting Diarrhea Comments: Keep your appointment with your dialysis and your GI doctor next week. Eat boiled rice and boiled chicken to see if it will help form your stool. You may take Imodium [id number] for diarrhea only if it is more than 6 watery diarrhea per day. Do not take Metamucil if you are having diarrhea. Follow-up with your primary doctor if worse return to the emergency room. The stool cultures are still pending however initial screening for C. difficile and Campylobacter were negative.The CT abdomen pelvis scan showed an incidental finding of L1 compression fracture. Follow-up with your primary doctor and get a referral to an orthopedic doctor. Discharge Date/Time: 06/20/18 17:37
--- NOTE | 2018-06-20 15:17 | CT Report ---
Reason: diarrhea Procedure Date: 06/20/2018 Accession Number: [id number] / [id number] Procedure: CT - Abdomen/Pelvis W/O CPT Code: FULL RESULT: EXAM: CT ABDOMEN AND PELVIS (CT KUB) EXAM DATE: 06/20/2018 02:52 PM. CLINICAL HISTORY: Diarrhea. COMPARISONS: Abdomen/pelvis without 01/11/2017 7:30 PM. TECHNIQUE: Routine axial helical CT imaging was performed through the abdomen and pelvis without IV contrast. Reconstructions: Coronal and sagittal. In accordance with CT protocol optimization, one or more of the following dose reduction techniques were utilized for this exam: automated exposure control, adjustment of mA and/or KV based on patient size, or use of iterative reconstructive technique. FINDINGS: Limited examination by absence of intravenous or oral contrast. Lung Bases: Interstitial thickening, possibly edema. Right Kidney/Ureter: Numerous punctate calcifications represent nonobstructing calculi measuring 4 mm or less versus vascular calcifications. No obstructing stones, hydronephrosis, or hydroureter. No perinephric fat stranding. Left Kidney/Ureter: Numerous punctate calcifications represent nonobstructing calculi measuring 4 mm or less versus vascular calcifications. Left renal cyst. No obstructing stones, hydronephrosis, or hydroureter. No perinephric fat stranding. Other Solid Organs: Noncontrast images of the solid organs are grossly unremarkable with notable absence of the spleen. Gallbladder/Bile Ducts: Unremarkable. Peritoneal Cavity: No free fluid, free air or juan david adenopathy. Bowel is grossly unremarkable. Pelvic Organs: No bladder stones or wall thickening. Noncontrast images of the visualized pelvic organs are unremarkable. Vasculature: Marked atherosclerotic disease with ectatic infrarenal aorta up to 2.8 cm. Other: Interval development of an L1 compression fracture, 50% loss of height. IMPRESSION: Limited examination with no hydronephrosis or overt obstructing renal calculi. CT evaluation for diarrhea in absence of oral and intravenous contrast in thin patients without intra-abdominal fat has low sensitivity. Interval compression fracture of L1. Ectatic infrarenal aorta in the setting of severe atherosclerotic disease. RADIA
[2018-06-20 17:34] VITALS: BP 124/53
== END 2018-06-20 17:37 | disposition home or self-care (01) ==
LOC: ED 11:31
DX: K52.9 Noninfective gastroenteritis and colitis, unspecified (principal); S32.010A Wedge compression fracture of first lumbar vertebra, initial encounter for closed fracture; W19.XXXA Unspecified fall, initial encounter; I12.9 Hypertensive chronic kidney disease with stage 1 through stage 4 chronic kidney disease, or unspecified chronic kidney disease; N18.9 Chronic kidney disease, unspecified; Z99.2 Dependence on renal dialysis; Z90.49 Acquired absence of other specified parts of digestive tract; Z87.19 Personal history of other diseases of the digestive system; R01.1 Cardiac murmur, unspecified; Z79.01 Long term (current) use of anticoagulants; Z85.01 Personal history of malignant neoplasm of esophagus
CPT/HCPCS: 36415; 74176; 80053; 83690; 85025; 87045; 87046; 87493; 99283

== ENCOUNTER 2018-06-25 09:00 | Outpatient (CLI) | payer MEDICARE, OTHER | END 2018-06-25 23:59 | disposition home or self-care (01) | LOC: LAB.R 09:00 | PROVIDERS: ATTEND Internal Medicine Gastroenterology | DX: R19.7 Diarrhea, unspecified (principal) | CPT/HCPCS: 81599; 82705; 83993 ==

== ENCOUNTER 2018-06-27 13:33 | Outpatient (CLI) | payer MEDICARE, OTHER | END 2018-06-27 13:34 | disposition home or self-care (01) | LOC: LAB.F 13:33 | PROVIDERS: ATTEND Internal Medicine Gastroenterology | DX: R19.7 Diarrhea, unspecified (principal) | CPT/HCPCS: 36415; 82784; 83516; 86256 ==

== ENCOUNTER 2018-07-13 09:50 | Outpatient (CLI) | payer MEDICARE, OTHER ==
[2018-07-28 19:36] LABS: COLLECTION DURATION 72 h; TOTAL SPECIMEN WEIGHT 346 g
== END 2018-07-13 23:59 ==
LOC: LAB.F 09:50
PROVIDERS: ATTEND Internal Medicine Gastroenterology
DX: R19.7 Diarrhea, unspecified (principal)
CPT/HCPCS: 82710

== ENCOUNTER 2018-08-30 06:55 | Outpatient (CLI) | payer MEDICARE, OTHER | END 2018-08-30 06:56 | disposition short-term general hospital (02) | LOC: EMS 06:55 | PROVIDERS: ATTEND Surgery | DX: R06.02 Shortness of breath (principal) | CPT/HCPCS: A0425; A0427 ==

== ENCOUNTER 2018-09-06 14:06 | Outpatient (CLI) | payer MEDICARE, OTHER | END 2018-09-06 14:07 | disposition home or self-care (01) | LOC: LAB.F 14:06 | DX: I26.99 Other pulmonary embolism without acute cor pulmonale (principal) | CPT/HCPCS: 85610 ==

== ENCOUNTER 2018-09-12 14:51 | Outpatient (CLI) | payer MEDICARE, OTHER | END 2018-09-12 14:52 | disposition home or self-care (01) | LOC: LAB.F 14:51 | PROVIDERS: ATTEND Family Medicine | DX: I26.99 Other pulmonary embolism without acute cor pulmonale (principal) | CPT/HCPCS: 85610 ==

== ENCOUNTER 2018-09-15 11:21 | Outpatient (CLI) | payer MEDICARE, OTHER | END 2018-09-15 23:59 | LOC: LAB.S 11:21 | PROVIDERS: ATTEND Family Medicine | DX: I26.99 Other pulmonary embolism without acute cor pulmonale (principal) | CPT/HCPCS: 85610 ==

== ENCOUNTER 2018-09-22 08:00 | Outpatient (CLI) | payer MEDICARE, OTHER | END 2018-09-22 23:59 | disposition home or self-care (01) | LOC: LAB.S 08:00 | PROVIDERS: ATTEND Specialist Research Study | DX: I26.99 Other pulmonary embolism without acute cor pulmonale (principal); I82.403 Acute embolism and thrombosis of unspecified deep veins of lower extremity, bilateral; Q21.1 Atrial septal defect | CPT/HCPCS: 85610 ==

== ENCOUNTER 2018-09-29 08:00 | Outpatient (CLI) | payer MEDICARE, OTHER | END 2018-09-29 23:59 | disposition home or self-care (01) | LOC: LAB.S 08:00 | PROVIDERS: ATTEND Specialist Research Study | DX: I82.403 Acute embolism and thrombosis of unspecified deep veins of lower extremity, bilateral (principal); Q21.1 Atrial septal defect; I26.99 Other pulmonary embolism without acute cor pulmonale | CPT/HCPCS: 85610 ==

== ENCOUNTER 2018-10-06 08:00 | Outpatient (CLI) | payer MEDICARE, OTHER | END 2018-10-06 23:59 | disposition home or self-care (01) | LOC: LAB.S 08:00 | PROVIDERS: ATTEND Specialist Research Study | DX: I82.403 Acute embolism and thrombosis of unspecified deep veins of lower extremity, bilateral (principal); Q21.1 Atrial septal defect; I26.99 Other pulmonary embolism without acute cor pulmonale | CPT/HCPCS: 85610 ==

== ENCOUNTER 2018-10-13 08:00 | Outpatient (CLI) | payer MEDICARE, OTHER | END 2018-10-13 23:59 | disposition home or self-care (01) | LOC: LAB.S 08:00 | PROVIDERS: ATTEND Specialist Research Study | DX: I82.403 Acute embolism and thrombosis of unspecified deep veins of lower extremity, bilateral (principal); Q21.1 Atrial septal defect; I26.99 Other pulmonary embolism without acute cor pulmonale | CPT/HCPCS: 85610 ==

== ENCOUNTER 2018-10-14 07:26 | Outpatient (CLI) | payer MEDICARE, OTHER | END 2018-10-14 07:27 | disposition critical access hospital (66) | LOC: EMS 07:26 | PROVIDERS: ATTEND Surgery | DX: R06.02 Shortness of breath (principal) | CPT/HCPCS: A0425; A0429 ==

== ENCOUNTER 2018-10-14 08:06 | Emergency (ER) | payer MEDICARE, OTHER ==
--- NOTE | 2018-10-14 08:31 | ED Physician Documentation ---
PD HPI DYSPNEA - Stated complaint Stated Complaint: SOA - Chief complaint Chief Complaint: Resp - History obtained from History obtained from: Patient, Family (spouse) - History of Present Illness Timing - onset: Today Timing - onset during: Rest Timing - details: Other (Now much improved.) Improved by: O2 Worsened by: Laying flat Similar symptoms before: Diagnosis (CRF with fluid overload.) - Additional information Additional information: Patient is an 83-year-old male with a history of chronic renal failure, on dialysis, who presents with shortness of breath that occurred when he awoke this morning. He felt anxious and "knew I needed oxygen." His symptoms improved after medics applied oxygen, and the patient was sitting upright. He is due for dialysis today. He refused transport to [facility] where dialysis could be performed, insisting that he be transported to our facility in anticipation of being discharged to go to his regular dialysis session in [place] this morning. He denies chest pain, fever, or cough. He reports history of similar symptoms in the past. A few weeks ago he awoke with worse symptoms than today and was transported to [facility] where he underwent dialysis and was hospitalized for 3 days before discharge. He feels that his symptoms today are not as bad as they were at that time. His past medical history is also significant for esophageal cancer for which he underwent partial resection of his esophagus many years ago. Review of Systems Constitutional: denies: Fever Ears: denies: Tinnitus/ringing Nose: denies: Congestion Throat: denies: Sore throat Cardiac: denies: Chest pain / pressure Respiratory: reports: Dyspnea. denies: Cough GI: denies: Abdominal Pain, Nausea, Vomiting : reports: Other (Chronic renal failure, but does make some urine.). denies: Dysuria Skin: denies: Rash Musculoskeletal: denies: Back pain, Extremity swelling Neurologic: denies: Focal weakness, Numbness, Headache PD PAST MEDICAL HISTORY - Past Medical History Cardiovascular: Hypertension Respiratory: None Neuro: None Endocrine/Autoimmune: None GI: None, Other (Esophageal cancer; short bowel syndrome) : Renal insuffiency, Other HEENT: Chronic vision loss, Chronic hearing loss Psych: None Musculoskeletal: None Derm: None - Past Surgical History Past Surgical History: Yes General: Colonoscopy, Other (Partial bowel resection; partial esophageal resection for cancer.) - Present Medications Home Medications: Ambulatory Orders Medication Instructions Recorded Confirmed Warfarin Sodium [Coumadin] 04/16/14 04/16/14 Amlodipine Besylate [Norvasc] 2.5 mg PO DAILY 07/11/16 08/01/16 Calcium Acetate 667 mg PO DAILY 07/11/16 08/01/16 Carvedilol 25 mg PO DAILY 07/11/16 08/01/16 Finasteride 5 mg PO DAILY 07/11/16 08/01/16 Furosemide 20 mg PO DAILY 07/11/16 08/01/16 Multivitamin [Multivitamins] 1 each PO DAILY 07/11/16 08/01/16 Sodium Bicarbonate 650 mg PO DAILY 07/11/16 08/01/16 Ubidecarenone/Vitamin E Mixed 1 07/11/16 [[id number] E 100 mg-10 Unit Sfg] Warfarin [Coumadin] 2 mg PO DAILY 07/11/16 08/01/16 Hydrocodone/Acetaminophen 1 - 2 each PO Q6H PRN #10 tablet 01/11/17 [Hydrocodon-Acetaminophen 5-325] HYDROcod/ACETAM 5/325 [[place] 5/325] 1 - 2 ea PO Q6H PRN #20 tablet 03/25/17 - Allergies Allergies/Adverse Reactions: Allergies Allergy/AdvReac Type Severity Reaction Status Date / Time No Known Drug Allergies Allergy Verified 10/14/18 08:25 - Living Situation Living Situation: reports: With spouse/s.o. Living Arrangement: reports: At home - Social History Does the pt smoke?: No Smoking Status: Never smoker Does the pt drink ETOH?: No Does the pt have substance abuse?: No - Immunizations Immunizations are current?: No - POLST Patient has POLST: No PD ED PE NORMAL - Vitals Vital signs reviewed: Yes (Borderline systolic hypertension.) - General General: Alert and oriented X 3, Other (Somewhat frail appearing.) - HEENT HEENT: Atraumatic, Moist mucous membranes, Pharynx benign - Neck Neck: No adenopathy, No JVD (at 20 degrees elevation.) - Cardiac Cardiac: RRR - Respiratory Respiratory: Other (faint rales at the bases bilaterally.) - Abdomen Abdomen: Soft, Non tender - Back Back: No CVA TTP - Derm Derm: No rash - Extremities Extremities: No edema, No calf tenderness / cord - Neuro Neuro: Alert and oriented X 3, No motor deficit, Normal speech Results - Vitals Vitals: Vital Signs - 24 hr 10/14/18 10:05 Heart Rate 88 Respiratory 21 Rate Blood Pressure 150/134 H O2 Saturation 95 Oxygen O2 Source Room air - EKG (time done) 08:29 Rate: Rate (enter#) (93) Rhythm: NSR Luebbering: LAD Intervals: LBBB QRS: LVH Ischemia: T wave inversion (in lateral leads I, aVL, and V3-V6.) Compare to prior EKG: Changed from prior EKG (LBBB is more pronounced than on previous EKG of 04/16/2019.) Computer interpretation: Agree with computer - Labs Labs: Laboratory Tests 10/14/18 10/14/18 10/14/18 08:35 08:35 08:35 WBC 4.9 RBC 3.25 L Hgb 11.2 L Hct 34.2 L MCV 105.1 H MCH 34.6 H MCHC 32.9 RDW 14.2 Plt Count 156 MPV 9.1 Neut # (Auto) 3.0 Lymph # (Auto) 0.9 L Sanborn # (Auto) 0.7 Eos # (Auto) 0.3 Baso # (Auto) 0.0 Absolute Nucleated RBC 0.00 Nucleated RBC % 0.0 PT INR Sodium 137 Potassium 4.8 Chloride 97 L Carbon Dioxide 22 Anion Gap 18.0 H BUN 52 H Creatinine 5.7 H Estimated GFR (MDRD) 10 L Glucose 84 Calcium 8.5 Total Bilirubin 0.9 AST 26 ALT 12 Alkaline Phosphatase 54 Troponin I 0.05 B-Natriuretic Peptide Total Protein 7.8 Albumin 3.3 Globulin 4.5 H Albumin/Globulin Ratio 0.7 L Lipase 35 10/14/18 10/14/18 08:35 08:35 WBC RBC Hgb Hct MCV MCH MCHC RDW Plt Count MPV Neut # (Auto) Lymph # (Auto) Sanborn # (Auto) Eos # (Auto) Baso # (Auto) Absolute Nucleated RBC Nucleated RBC % PT 24.5 H INR 2.2 H Sodium Potassium Chloride Carbon Dioxide Anion Gap BUN Creatinine Estimated GFR (MDRD) Glucose Calcium Total Bilirubin AST ALT Alkaline Phosphatase Troponin I B-Natriuretic Peptide 2578 H Total Protein Albumin Globulin Albumin/Globulin Ratio Lipase - Rads (name of study) Portable CXR Radiology: Prelim report reviewed, EMP read contemporaneously, See rad report (1) Moderate CHF/fluid overload pattern including pulmonary vascular congestion, interstitial and alveolar edema, and mild cardiomegaly. There are probable small bilateral pleural effusions. 2) Dense consolidation at the retrocardiac left lung base is likely due to alveolar edema, but aspiration or pneumonia cannot be excluded.) PD MEDICAL DECISION MAKING - ED course Complexity details: reviewed old records, reviewed results, re-evaluated patient, considered differential, d/w patient, d/w family ED course: The patient's presentation is significant for congestive heart failure in a patient with chronic renal failure on dialysis. His symptoms improved with administration of oxygen and upright positioning by medics. His pulse oximetry is 93% on room air throughout his time in the emergency department. His BNP is significantly elevated at 2598. His potassium is normal at 4.8. He needs urgent dialysis, and is quite adamant that he be discharged so he can go to his dialysis appointment in [place], rather than being transported to [facility] for inpatient dialysis. I discussed with him and his the potential risk of this decision, but they are quite firm. It is likely that he will get dialysis more quickly going to [place] than if he awaits for transport to an [facility]. Treatment in the emergency department included administration of Lasix 20 mg IV. At the time of discharge he reports feeling subjectively much improved. I discussed with him potentially worrisome signs or symptoms that should prompt reevaluation in the emergency department. Departure - Departure Disposition: 01 Home, Self Care Clinical Impression: Chronic kidney disease with end stage renal failure on dialysis Congestive heart failure Qualifiers: Heart failure type: unspecified Heart failure chronicity: acute on chronic Qualified Code(s): I50.9 - Heart failure, unspecified Condition: Stable Instructions: ED CHF General Follow-Up: Naomy Paiz DNP [Credentialed Staff Provider] - Comments: Go directly to dialysis appointment. Follow-up with your primary physician on Saturday as scheduled. Return to the emergency department if you develop increasing difficulty breathing, chest pain, or otherwise worsening symptoms. Discharge Date/Time: 10/14/18 10:06
[2018-10-14] MEDS ORDERED: FUROSEMIDE 20 MG/2 ML VIAL IVP STA (08:38)
--- NOTE | 2018-10-14 08:48 | XRAY Report ---
Reason: dyspnea Procedure Date: 10/14/2018 Accession Number: [id number] / [id number] Procedure: XR - Chest 1 View X-Ray CPT Code: 98923 FULL RESULT: EXAM: CHEST RADIOGRAPHY EXAM DATE: 10/14/2018 08:40 AM. CLINICAL HISTORY: Dyspnea. COMPARISON: CHEST 2 VIEW PA/LAT 04/09/2013 11:12 AM. TECHNIQUE: 1 view. FINDINGS: Lungs/Pleura: The pulmonary vasculature is prominent and indistinct. There are diffuse bilateral interstitial and alveolar opacities. There is dense consolidation at the retrocardiac left lung base. There are probable small bilateral pleural effusions. No pneumothorax. Mediastinum: There is mild enlargement of the cardiac silhouette. There is mild atherosclerotic calcification of the aortic arch. Other: No acute osseous abnormality. IMPRESSION: 1. Moderate CHF/fluid overload pattern including pulmonary vascular congestion, interstitial and alveolar edema, and mild cardiomegaly. There are probable small bilateral pleural effusions. 2. Dense consolidation at the retrocardiac left lung base is likely due to alveolar edema, but aspiration or pneumonia cannot be excluded. RADIA
[2018-10-14 08:58] LABS: EOSINOPHILS # (AUTO) 0.3 10^3/uL (0.0-0.7); EOSINOPHILS % (AUTO) 5.3 %; HGB - HEMOGLOBIN 11.2 g/dL (14.0-18.0); LYMPHOCYTES # (AUTO) 0.9 10^3/uL (1.5-3.5); LYMPHOCYTES % (AUTO) 18.2 %; MEAN CORPUSCULAR HEMOGLOBIN 34.6 pg (27.0-31.0); MEAN CORPUSCULAR HGB CONC 32.9 g/dL (32.0-36.0); MEAN CORPUSCULAR VOLUME 105.1 fL (80.0-94.0); MEAN PLATELET VOLUME 9.1 fL (7.4-11.4); MONOCYTES # (AUTO) 0.7 10^3/uL (0.0-1.0); MONOCYTES % (AUTO) 14.2 %; NEUTROPHILS % (AUTO) 61.3 %; PLT - PLATELET COUNT 156 10^3/uL (130-450); RED BLOOD COUNT 3.25 10^6/uL (4.70-6.10); RED CELL DISTRIBUTION WIDTH 14.2 % (12.0-15.0); WHITE BLOOD COUNT 4.9 x10^3/uL (4.8-10.8)
[2018-10-14 09:02] LABS: INR 2.2 (0.8-1.2); PT - PROTHROMBIN TIME 24.5 secs (9.9-12.6)
[2018-10-14 09:05] LABS: ALBUMIN 3.3 g/dL (3.2-5.5); ALBUMIN/GLOBULIN RATIO 0.7 (1.0-2.2); BILIRUBIN,TOTAL 0.9 mg/dL (0.2-1.0); CALCIUM 8.5 mg/dL (8.5-10.3); CREATININE 5.7 mg/dL (0.6-1.2); TOTAL PROTEIN 7.8 g/dL (6.7-8.2)
[2018-10-14 10:06] VITALS: BP 150/134
== END 2018-10-14 10:06 | disposition home or self-care (01) ==
LOC: EDUNIT# → ED 08:06
DX: I50.9 Heart failure, unspecified (principal); I12.9 Hypertensive chronic kidney disease with stage 1 through stage 4 chronic kidney disease, or unspecified chronic kidney disease; Z99.2 Dependence on renal dialysis; N18.6 End stage renal disease
CPT/HCPCS: 36415; 71045; 80053; 83690; 83880; 84484; 85025; 85610; 93005; 96374; 99283; 99284

== ENCOUNTER 2018-10-21 06:39 | Outpatient (CLI) | payer MEDICARE, OTHER | END 2018-10-21 06:40 | disposition short-term general hospital (02) | LOC: EMS 06:39 | PROVIDERS: ATTEND Surgery | DX: R06.02 Shortness of breath (principal); R53.1 Weakness; Z99.2 Dependence on renal dialysis | CPT/HCPCS: A0425; A0427 ==

== ENCOUNTER 2018-10-27 08:00 | Outpatient (CLI) | payer MEDICARE, OTHER | END 2018-10-27 23:59 | disposition home or self-care (01) | LOC: LAB.S 08:00 | PROVIDERS: ATTEND Nurse Practitioner | DX: I82.403 Acute embolism and thrombosis of unspecified deep veins of lower extremity, bilateral (principal); Q21.2 Atrioventricular septal defect; I26.99 Other pulmonary embolism without acute cor pulmonale | CPT/HCPCS: 85610 ==

== ENCOUNTER 2018-11-10 08:00 | Outpatient (CLI) | payer MEDICARE, OTHER ==
[2018-11-10 17:35] LABS: INR 2.9 (0.8-1.2); PT - PROTHROMBIN TIME 32.2 secs (9.9-12.6)
== END 2018-11-10 23:59 | disposition home or self-care (01) ==
LOC: LAB.S 08:00
PROVIDERS: ATTEND Nurse Practitioner
DX: Z12.5 Encounter for screening for malignant neoplasm of prostate (principal); I82.403 Acute embolism and thrombosis of unspecified deep veins of lower extremity, bilateral; I26.99 Other pulmonary embolism without acute cor pulmonale; Q21.1 Atrial septal defect
CPT/HCPCS: 36415; 85610; G0103; 84153

== ENCOUNTER 2018-11-17 17:38 | Outpatient (CLI) | payer MEDICARE, OTHER | END 2018-11-17 17:39 | disposition EMS.NT | LOC: EMS 17:38 | PROVIDERS: ATTEND Surgery | DX: R58 Hemorrhage, not elsewhere classified (principal) ==

== ENCOUNTER 2018-11-17 22:17 | Outpatient (CLI) | payer MEDICARE, OTHER | END 2018-11-17 22:18 | disposition EMS.NT | LOC: EMS 22:17 | PROVIDERS: ATTEND Surgery | DX: R58 Hemorrhage, not elsewhere classified (principal) ==

== ENCOUNTER 2018-11-17 23:17 | Emergency (ER) | payer MEDICARE, OTHER ==
--- NOTE | 2018-11-17 23:35 | ED Physician Documentation ---
History of Present Illness - Stated complaint Stated Complaint: ARM BLEEDING - Chief complaint Chief Complaint: General - History obtained from History obtained from: Patient - Additonal information Additional information: Patient is an 83-year-old male with complicated past medical history including end-stage renal disease requiring dialysis presenting with bleeding from his fistula of the left arm that began earlier today while at dialysis. Patient reports that following dialysis he has had bleeding without pain. Patient reports that dialysis staff bandage him several times and he was monitored and eventually clotted. However, upon arriving at home, he had moved his arm and it began to rebleed.Patient reports that he was recently on Coumadin and then transition to Lovenox for a cardiac procedure scheduled for later this week. Patient believes he took his Lovenox as shorter duration than he was instructed. By this, he means that he took it approximately 8-10 hours apart as opposed to 12 hours apart earlier today. Patient denies other complaints or changes from his baseline. No other improving or worsening factors noted. Review of Systems Skin: reports: Abrasion (s) Musculoskeletal: denies: Extremity pain PD PAST MEDICAL HISTORY - Past Medical History Cardiovascular: Hypertension Respiratory: None Neuro: None Endocrine/Autoimmune: None GI: None, Other (Esophageal cancer; short bowel syndrome) : Renal insuffiency, Other HEENT: Chronic vision loss, Chronic hearing loss Psych: None Musculoskeletal: None Derm: None - Past Surgical History Past Surgical History: Yes General: Colonoscopy, Other (Partial bowel resection; partial esophageal resection for cancer.) - Present Medications Home Medications: Ambulatory Orders Medication Instructions Recorded Confirmed Warfarin Sodium [Coumadin] 04/16/14 04/16/14 Amlodipine Besylate [Norvasc] 2.5 mg PO DAILY 07/11/16 08/01/16 Calcium Acetate 667 mg PO DAILY 07/11/16 08/01/16 Carvedilol 25 mg PO DAILY 07/11/16 08/01/16 Finasteride 5 mg PO DAILY 07/11/16 08/01/16 Furosemide 20 mg PO DAILY 07/11/16 08/01/16 Multivitamin [Multivitamins] 1 each PO DAILY 07/11/16 08/01/16 Sodium Bicarbonate 650 mg PO DAILY 07/11/16 08/01/16 Ubidecarenone/Vitamin E Mixed 1 07/11/16 [[id number]-[id number] E 100 mg-10 Unit Sfg] Warfarin [Coumadin] 2 mg PO DAILY 07/11/16 08/01/16 Hydrocodone/Acetaminophen 1 - 2 each PO Q6H PRN #10 tablet 01/11/17 [Hydrocodon-Acetaminophen 5-325] HYDROcod/ACETAM 5/325 [Katy 5/325] 1 - 2 ea PO Q6H PRN #20 tablet 03/25/17 - Allergies Allergies/Adverse Reactions: Allergies Allergy/AdvReac Type Severity Reaction Status Date / Time No Known Drug Allergies Allergy Verified 11/17/18 23:35 - Social History Does the pt smoke?: No Smoking Status: Never smoker Does the pt drink ETOH?: No Does the pt have substance abuse?: No - Immunizations Immunizations are current?: No - POLST Patient has POLST: No PD ED PE NORMAL - Vitals Vital signs reviewed: Yes - General General: Alert and oriented X 3, No acute distress, Other (Frail, chronically ill-appearing) - HEENT HEENT: Atraumatic - Cardiac Cardiac: Other (Large fistula with palpable thrill to left upper extremity) - Respiratory Respiratory: No respiratory distress - Derm Derm: Normal color, Warm and dry, No rash, Other (2 pinpoint areas of bleeding overlying left upper arm fistula) - Extremities Extremities: No deformity, No tenderness to palpate - Neuro Neuro: Alert and oriented X 3, No motor deficit, No sensory deficit (No gross deficits noted.) - Psych Psych: Normal mood, Normal affect Results - Vitals Vitals: Vital Signs - 24 hr 11/17/18 11/17/18 23:21 23:31 Temperature 36.5 C 36.5 C Heart Rate 85 83 Respiratory 20 20 Rate Blood Pressure 122/58 L 125/58 L O2 Saturation 97 97 Oxygen O2 Source Room air PD MEDICAL DECISION MAKING - ED course Complexity details: re-evaluated patient, considered differential, d/w patient, d/w family ED course: Patient had an issue with bleeding from fistula earlier today while at dialysis and was bandaged, however, bleeding persisted. Do not find evidence of significant trauma, infection, or other issue with the fistula except for 2 areas of pinpoint bleeding. Placed Surgicel and bandaged appropriately and continue to monitor in the ED without further bleeding.Wound care, holding Lovenox Advised patient on dose tomorrow morning and contacting physician to discuss issue and use of Lovenox further. Patient and family voiced understanding and are comfortable with discharge plan. Departure - Departure Disposition: 01 Home, Self Care Clinical Impression: Complication of AV dialysis fistula Qualifiers: Encounter type: initial encounter Qualified Code(s): T82.9XXA - Unspecified complication of cardiac and vascular prosthetic device, implant and graft, initial encounter Condition: Good Follow-Up: your,doctor [Other] - Tomorrow Comments: Please continue all home medications as previously instructed except for holding morning Lovenox dose tomorrow until you contact your physician to discuss bleeding from fistula complication. Please keep bandaging in place until further evaluation by either dialysis staff or your physician in the next 1-2 days. Return to ED sooner if experience return of bleeding, worsening symptoms, or other concerns.
[2018-11-18 00:31] VITALS: BP 100/56
== END 2018-11-18 00:39 | disposition home or self-care (01) ==
LOC: ED 23:17
DX: T82.838A Hemorrhage due to vascular prosthetic devices, implants and grafts, initial encounter (principal); N18.6 End stage renal disease; Z99.2 Dependence on renal dialysis; I12.0 Hypertensive chronic kidney disease with stage 5 chronic kidney disease or end stage renal disease; Z79.01 Long term (current) use of anticoagulants
CPT/HCPCS: 99283

== ENCOUNTER 2018-11-18 09:09 | Outpatient (CLI) | payer MEDICARE, OTHER | END 2018-11-18 09:10 | disposition critical access hospital (66) | LOC: EMS 09:09 | PROVIDERS: ATTEND Surgery | DX: T82.838A Hemorrhage due to vascular prosthetic devices, implants and grafts, initial encounter (principal); Z99.2 Dependence on renal dialysis | CPT/HCPCS: A0425; A0429 ==

== ENCOUNTER 2018-11-18 09:41 | Emergency (ER) | payer MEDICARE, OTHER ==
[2018-11-18 10:19] LABS: BASOPHILS # (AUTO) 0.1 10^3/uL (0.0-0.1); BASOPHILS % (AUTO) 1.2 %; EOSINOPHILS # (AUTO) 0.1 10^3/uL (0.0-0.7); EOSINOPHILS % (AUTO) 1.1 %; HGB - HEMOGLOBIN 11.1 g/dL (14.0-18.0); LYMPHOCYTES # (AUTO) 0.6 10^3/uL (1.5-3.5); LYMPHOCYTES % (AUTO) 7.5 %; MEAN CORPUSCULAR HEMOGLOBIN 34.9 pg (27.0-31.0); MEAN CORPUSCULAR HGB CONC 33.1 g/dL (32.0-36.0); MEAN CORPUSCULAR VOLUME 105.5 fL (80.0-94.0); MEAN PLATELET VOLUME 8.6 fL (7.4-11.4); MONOCYTES # (AUTO) 0.6 10^3/uL (0.0-1.0); MONOCYTES % (AUTO) 7.7 %; NEUTROPHILS # (AUTO) 6.2 10^3/uL (1.5-6.6); NEUTROPHILS % (AUTO) 82.5 %; PLT - PLATELET COUNT 223 10^3/uL (130-450); RED BLOOD COUNT 3.19 10^6/uL (4.70-6.10); RED CELL DISTRIBUTION WIDTH 17.5 % (12.0-15.0); WHITE BLOOD COUNT 7.5 x10^3/uL (4.8-10.8)
[2018-11-18] MEDS ORDERED: BUFFERED LIDOCAINE 10 ML SYRINGE SUBQ STA (10:23)
[2018-11-18] MEDS ORDERED: BUFFERED LIDOCAINE 10 ML SYRINGE ONE (10:32)
[2018-11-18 10:33] LABS: ALBUMIN 3.1 g/dL (3.2-5.5); ALBUMIN/GLOBULIN RATIO 0.7 (1.0-2.2); CALCIUM 8.3 mg/dL (8.5-10.3); CREATININE 5.2 mg/dL (0.6-1.2); TOTAL PROTEIN 7.6 g/dL (6.7-8.2)
[2018-11-18 10:48] VITALS: BP 92/51
[2018-11-18] MEDS ORDERED: BACITRACIN OINT TOP ONE (10:54)
[2018-11-18 11:12] LABS: PARTIAL THROMBOPLASTIN TIME 88.5 secs (24.9-33.3)
--- NOTE | 2018-11-18 11:48 | ED Physician Documentation ---
History of Present Illness - Stated complaint Stated Complaint: BLEEDING FISTULA - Chief complaint Chief Complaint: General - History obtained from History obtained from: Patient, Family - History of Present Illness Timing: Yesterday - Additonal information Additional information: 83-year-old male who is been on hemodialysis with a fistula in place for the past 5 years has developed a pulmonary embolism and he is on some anticoagulation. He has been switched from Coumadin to Lovenox in anticipation of a angiogram to be done tomorrow. Last night from his dialysis treatment they difficulty controlling the bleeding to the puncture sites in the fistula and he came to the emergency department, a dressing was placed the bleeding has continued to ooze on and off throughout the night. He is come in this morning with persistent bleeding. Review of Systems Constitutional: denies: Fever Eyes: reports: Decreased vision Ears: denies: Ear pain Nose: denies: Congestion Respiratory: denies: Cough GI: denies: Vomiting PD PAST MEDICAL HISTORY - Past Medical History Past Medical History: Yes Cardiovascular: Hypertension Respiratory: None Neuro: None Endocrine/Autoimmune: None GI: None, Other : Renal insuffiency, Other HEENT: Chronic vision loss, Chronic hearing loss Psych: None Musculoskeletal: None Derm: None - Past Surgical History Past Surgical History: Yes General: Colonoscopy, Other HEENT: Cataracts - Present Medications Home Medications: Ambulatory Orders Medication Instructions Recorded Confirmed Calcium Acetate 667 mg PO DAILY 07/11/16 11/18/18 Carvedilol 25 mg PO DAILY 07/11/16 11/18/18 Multivitamin [Multivitamins] 1 each PO DAILY 07/11/16 11/18/18 Sodium Bicarbonate 650 mg PO DAILY 07/11/16 11/18/18 Ubidecarenone/Vitamin E Mixed 1 tab PO DAILY 07/11/16 11/18/18 [[id number]-Qla E 100 mg-10 Unit Sfg] Hydrocodone/Acetaminophen 1 - 2 each PO Q6H PRN #10 tablet 01/11/17 11/18/18 [Hydrocodon-Acetaminophen 5-325] - Allergies Allergies/Adverse Reactions: Allergies Allergy/AdvReac Type Severity Reaction Status Date / Time No Known Drug Allergies Allergy Verified 11/18/18 09:53 - Social History Does the pt smoke?: No Smoking Status: Never smoker Does the pt drink ETOH?: No Does the pt have substance abuse?: No - Immunizations Immunizations are current?: No - POLST Patient has POLST: No PD ED PE NORMAL - Vitals Vital signs reviewed: Yes (hypotensive ) - General General: No acute distress, Well developed/nourished - HEENT HEENT: Atraumatic, PERRL - Neck Neck: Supple, no meningeal sign - Respiratory Respiratory: No respiratory distress - Derm Derm: Normal color, Warm and dry, No rash - Extremities Extremities: Other (There is bleeding from the left arm fistula in 2 spots that is not controlled after prolonged pressure) - Neuro Neuro: No motor deficit, No sensory deficit Eye Opening: Spontaneous Motor: Obeys Commands Verbal: Oriented GCS Score: 15 - Psych Psych: Normal mood, Normal affect Results - Vitals Vitals: Vital Signs - 24 hr 11/18/18 11/18/18 09:49 10:47 Temperature 36.5 C Heart Rate 84 70 Respiratory 14 14 Rate Blood Pressure 104/53 L 92/51 L O2 Saturation 97 100 Oxygen O2 Source Room air - Labs Labs: Laboratory Tests 11/18/18 11/18/18 11/18/18 10:00 10:00 10:00 WBC 7.5 RBC 3.19 L Hgb 11.1 L Hct 33.6 L MCV 105.5 H MCH 34.9 H MCHC 33.1 RDW 17.5 H Plt Count 223 MPV 8.6 Neut # (Auto) 6.2 Lymph # (Auto) 0.6 L [place] # (Auto) 0.6 Eos # (Auto) 0.1 Baso # (Auto) 0.1 Absolute Nucleated RBC 0.01 Nucleated RBC % 0.1 APTT 88.5 H Sodium 135 Potassium 4.2 Chloride 90 L Carbon Dioxide 28 Anion Gap 17.0 H BUN 39 H Creatinine 5.2 H Estimated GFR (MDRD) 11 L Glucose 91 Calcium 8.3 L Total Bilirubin 1.0 AST 22 ALT 10 Alkaline Phosphatase 59 Total Protein 7.6 Albumin 3.1 L Globulin 4.5 H Albumin/Globulin Ratio 0.7 L Lipase 21 L Procedures - Laceration (location) left arm fistula Length in cm: 1 Wound type: Stellate, Clean Neurovascular status: Sensory intact, Motor intact Anesthesia: Lidocaine 1%, With bicarb Wound Preparation: Hibiclens, Irrigated copiously NS, Wound explored, To the base Skin layer closure: Nylon, Interrupted, Size #-0 - enter number (4-0), Sutures - enter # (There are 4 sutures placed to the superior puncture and there are 3 crossed to the lower puncture.) Other: Patient tolerated well, No complications, Neurovascular intact, Dressing applied, Tetanus UTD Complexity: Simple PD MEDICAL DECISION MAKING - ED course Complexity details: considered differential, d/w patient, d/w family ED course: 83 y/o male with bleeding from the fistula has this repaired with suturing. 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
[2018-11-18 11:50] LABS: PT - PROTHROMBIN TIME > 12.6 secs (9.9-12.6)
[2018-11-18 11:51] LABS: INR > 1.2 (0.8-1.2)
[2018-11-18] MEDS ORDERED: PHYTONADIONE 10 MG/ML AMP PO ONE (11:57)
[2018-11-18] MEDS ORDERED: CHERRY SYRUP 10 ML UDC PO ONE (11:57)
== END 2018-11-18 12:14 | disposition home or self-care (01) ==
LOC: EDSEX → ED 09:41
DX: T82.838A Hemorrhage due to vascular prosthetic devices, implants and grafts, initial encounter (principal); I10 Essential (primary) hypertension; Z99.2 Dependence on renal dialysis
CPT/HCPCS: 36415; 80053; 83690; 85025; 85610; 85730; 99283

== ENCOUNTER 2018-11-18 16:16 | Observation (INO) | payer MEDICARE, OTHER ==
[2018-11-18] MEDS ORDERED: BUFFERED LIDOCAINE 10 ML SYRINGE SUBQ STA (16:43)
--- NOTE | 2018-11-18 16:45 | ED Physician Documentation ---
History of Present Illness - Stated complaint Stated Complaint: LT ARM DRESSING BLEED - Chief complaint Chief Complaint: General - History obtained from History obtained from: Patient, Family - History of Present Illness Timing: Today - Additonal information Additional information: 83-year-old male who has been on some Coumadin and has been discontinued from the Coumadin and placed on Lovenox has continued to bleed from his dialysis shunt where he was punctured yesterday. He was seen in the emergency department last night a dressing was placed he came in this morning with a dressing saturated this morning we sutured to puncture wounds and hemostasis was achieved the patient was given 10 mg of vitamin K for an INR that was not measurable. Review of Systems Constitutional: denies: Fever Eyes: denies: Decreased vision Ears: denies: Ear pain Nose: denies: Congestion Throat: denies: Sore throat Cardiac: denies: Chest pain / pressure, Palpitations GI: denies: Vomiting Skin: reports: Other (bleeding from shunt site.) Musculoskeletal: denies: Neck pain, Back pain, Extremity pain Neurologic: reports: Generalized weakness. denies: Focal weakness, Numbness PD PAST MEDICAL HISTORY - Past Medical History Cardiovascular: Hypertension Respiratory: None Neuro: None Endocrine/Autoimmune: None GI: None, Other : Renal insuffiency, Other HEENT: Chronic vision loss, Chronic hearing loss Psych: None Musculoskeletal: None Derm: None - Past Surgical History Past Surgical History: Yes General: Colonoscopy, Other HEENT: Cataracts - Present Medications Home Medications: Ambulatory Orders Medication Instructions Recorded Confirmed Calcium Acetate 667 mg PO DAILY 07/11/16 11/18/18 Carvedilol 25 mg PO DAILY 07/11/16 11/18/18 Multivitamin [Multivitamins] 1 each PO DAILY 07/11/16 11/18/18 Sodium Bicarbonate 650 mg PO DAILY 07/11/16 11/18/18 Ubidecarenone/Vitamin E Mixed 1 tab PO DAILY 07/11/16 11/18/18 [Cwq42-Itl E 100 mg-10 Unit Sfg] Hydrocodone/Acetaminophen 1 - 2 each PO Q6H PRN #10 tablet 01/11/17 11/18/18 [Hydrocodon-Acetaminophen 5-325] - Allergies Allergies/Adverse Reactions: Allergies Allergy/AdvReac Type Severity Reaction Status Date / Time No Known Drug Allergies Allergy Verified 11/18/18 16:35 - Social History Does the pt smoke?: No Smoking Status: Never smoker Does the pt drink ETOH?: No Does the pt have substance abuse?: No - Immunizations Immunizations are current?: No - POLST Patient has POLST: No PD ED PE NORMAL - Vitals Vital signs reviewed: Yes (tachy to 101) - General General: Alert and oriented X 3, No acute distress, Well developed/nourished - HEENT HEENT: Atraumatic, PERRL, EOMI - Respiratory Respiratory: No respiratory distress - Extremities Extremities: No deformity, Other (There is bleeding from one fistula puncture site that was repaired earlier today. This is stopped with the addition of a 5th suture. ) - Neuro Neuro: Alert and oriented X 3, foundry molder 2-12 intact, No motor deficit, No sensory deficit, Normal speech Eye Opening: Spontaneous Motor: Obeys Commands Verbal: Oriented GCS Score: 15 - Psych Psych: Normal mood, Normal affect Results - Vitals Vitals: Vital Signs - 24 hr 11/18/18 16:20 Temperature 36.7 C Heart Rate 101 H Respiratory 19 Rate Blood Pressure 118/68 O2 Saturation 96 Oxygen O2 Source Room air - Labs Labs: Laboratory Tests 11/18/18 17:28 Whole Blood INR > 8.0 H* Procedures - Laceration (location) left dialysis fistula Length in cm: 1 Wound type: Stellate, Clean Neurovascular status: Sensory intact, Motor intact Anesthesia: Lidocaine 1%, With bicarb Wound Preparation: Hibiclens, Irrigated copiously NS, Wound explored, To the base Skin layer closure: Nylon, Size #-0 - enter number (4-0), Sutures - enter # (1) Other: Patient tolerated well, No complications, Neurovascular intact, Dressing applied Complexity: Simple PD MEDICAL DECISION MAKING - ED course Complexity details: reviewed results, re-evaluated patient, considered differential, d/w patient, d/w family, d/w territory sales consultant (SHMUEL [facility] nephrology for patient recommends observation overnight repeat INR in am. ) ED course: 83-year-old hemodialysis patient who has been undergoing bridging therapy for procedure that is scheduled to happen tomorrow has somehow managed to get his INR supratherapeutic and he is having some bleeding from venipuncture sites at his graft. We have been able to control the bleeding with suturing and the patient has been back to the hospital for his third visit in less than 24 hours. He has been given a dose of vitamin K and he had his last dose of Lovenox last night. The expectation is that his INR will come into range by morning and we will be able to discharge him to follow-up with Dr. Rosales. Dr. Rodgers is kind enough to admit the patient and will administer K-centra. Departure - Departure Disposition: ED Place in Observation Clinical Impression: Supratherapeutic INR Complication of AV dialysis fistula Qualifiers: Encounter type: subsequent encounter Qualified Code(s): T82.9XXD - Unspecified complication of cardiac and vascular prosthetic device, implant and graft, subsequent encounter Condition: Stable
[2018-11-18] MEDS ORDERED: ONDANSETRON ODT 4 MG TABLET TL PRN (18:14)
[2018-11-18] MEDS ORDERED: SODIUM CHLORIDE FLUSH 0.9% 10 ML SYRINGE IVP PRN (18:14)
[2018-11-18] MEDS ORDERED: ACETAMINOPHEN 325 MG TABLET PO PRN (18:14)
--- NOTE | 2018-11-18 18:51 | HISTORY & PHYSICAL EXAMINATION ---
Chief Complaint - Chief Complaint Chief Complaint: Bleeding from left arm fistula History of Present Illness - Admitted From Admitted From:: ED - History Obtained From Records Reviewed: yes History obtained from: Patient, ED staff and family Exam Limitations: Patient with Chronic vision loss and hearing loss - History of Present Illness HPI Comment/Other: 83-year-old male with a complicated past medical history to include HTN, 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 Ellison over at [facility], however patient had been taking Lovenox in frequent intervals and not as scheduled every 12. Patient did take 4 out of 5 doses of Lovenox. 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 Patient presented With bleeding to the left upper extremity fistula and had been seen earlier in the day and received a total of 5 sutures on the top aspect of fistula and 3 sutures on the bottom aspect of fistula, unable to control bleeding at that time. He was seen in the emergency department last night a dressing was placed he came in this morning with a dressing saturated this mor jan we sutured to puncture wounds and hemostasis was achieved the patient was given 10 mg of vitamin K for an INR that was not measurable. INR was greater 8.0 on the lab check, Hemoglobin was 11.1 g/dL for which patient did not have precipitous drop on his baseline hemoglobin measuring 9 to 12.0 g/dL, anemia of chronic disease coexisting. Patient's PT was more than 12.6 seconds as well as PTT more than 88.5 seconds. Patient complaining of loose foul-smelling questionable melanotic type stools as RN had noticed smell as well. Dr. Mckeon is patient's primary musical instrument maker or repairer who admits at [facility], Dr. Ellison his primary field service rep who admits at [facility], PCP is Naomy Paiz. Dr. Mckeon had suggest she is to Dr. Sanchez to admit patient overnight to have bleeding controlled with serial H&H's. Will administer Kcentra as patient continues to bleed from fistula site even after the application of Gelfoam applied to left upper extremity fistula site. History - Past Medical History Cardiovascular: reports: Hypertension Respiratory: reports: None Neuro: reports: None Endocrine/Autoimmune: reports: None GI: reports: None, Other : reports: Dialysis, Renal insuffiency, Other HEENT: reports: Chronic vision loss, Chronic hearing loss Psych: reports: None Musculoskeletal: reports: None Derm: reports: None MRSA Hx?: No - Past Surgical History General: reports: Colonoscopy, Other HEENT: reports: Cataracts - POLST Patient has POLST: No Meds/Allgy - Home Medications Home Medications: Ambulatory Orders Medication Instructions Recorded Confirmed Calcium Acetate 667 mg PO DAILY 07/11/16 11/18/18 Carvedilol 25 mg PO DAILY 07/11/16 11/18/18 Multivitamin [Multivitamins] 1 each PO DAILY 07/11/16 11/18/18 Sodium Bicarbonate 650 mg PO DAILY 07/11/16 11/18/18 Ubidecarenone/Vitamin E Mixed 1 tab PO DAILY 07/11/16 11/18/18 [Wyr16-Sjb E 100 mg-10 Unit Sfg] Hydrocodone/Acetaminophen 1 - 2 each PO Q6H PRN #10 tablet 01/11/17 11/18/18 [Hydrocodon-Acetaminophen 5-325] - Allergies Allergies/Adverse Reactions: Allergies Allergy/AdvReac Type Severity Reaction Status Date / Time No Known Drug Allergies Allergy Verified 11/18/18 16:35 Review of Systems - All Other Systems All Other Systems: reports: Reviewed and negative Prior Level of Functionality: Patient ambulates via cane, adequate home ADLs Exam - Vital Signs Reviewed Vital Signs: Yes Vital Signs: Vital Signs x48h Temp Pulse Resp BP Pulse Ox 11/18/18 16:20 36.7 C 101 H 19 118/68 96 - Physical Exam General Appearance: positive: No acute distress, Alert, Other (Hard of hearing as well as poor vision) Eyes Bilateral: positive: Normal inspection, PERRL, EOMI, Conjunctivae nml, No scleral icterus ENT: positive: ENT inspection nml, Pharynx nml, No signs of dehydration Neck: positive: Nml inspection, Thyroid nml, No JVD, Trachea midline. negative: Thyromegaly, Carotid bruit Respiratory: positive: Chest non-tender, No respiratory distress, Breath sounds nml Cardiovascular: positive: Regular rate & rhythm, Systolic murmur (2 out of 6, Blowing systolic murmur heard at the 2nd-3rd left intercostal sternal border with migration to axilla). negative: PMI displaced laterally, JVD present, Diastolic murmur, Gallop/S4 Peripheral Pulses: positive: 2+ Abdomen: positive: Non-tender, No organomegaly, Nml bowel sounds. negative: Guarding, Hepatomegaly, Splenomegaly Back: positive: Nml inspection Skin: positive: No rash, Warm, Pallor, Other ([address] with some oozing surrounding suture sites). negative: Skin rash Extremities: positive: Non-tender, Full ROM, Other (Left upper extremity fistula with thrill along with 8 suture sites 5 on top and 3 on bottom with Gelfoam applied and surrounding oozing of site.). 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 10 mg x 1. Kcentra will be administered at 2500 units x 1. Due to continued bleeding and likelihood of acute blood loss anemia will need to be monitored closely and may need transfusions if patient's hemoglobin drops below 8 g/dL as patient has underlying valvular heart disease. Primary musical instrument maker or repairer suggested that patient be observed and if bleeding continues may needd the possibility of transferring over to [facility] or [facility] in the anticipation of having urgent hemodialysis since the anticoagulant Lovenox is still in patient's system and is not clearing out effectively. (2) Anticoagulation excessive Conclusion/Plan: INR more than 8.0, PT more than 12.6 seconds, PTT of 88.5 seconds On admission. We will continue with serial INR checks, serial H&H checks, patient had applied Gelfoam and vitamin K along with 8 sutures. Will hold Lovenox as well as Coumadin for now. May need urgent hemodialysis. (3) Blood loss anemia Conclusion/Plan: Secondary to Lovenox with excessive anticoagulation and administration as patient had received 4 out of 5 doses and was being administered less than 12 hours intervals in between doses. Patient with questionable melanotic stools. Guaiac to evaluate for occult blood. May need colonoscopy in the setting of patient's history of small bowel syndrome with prior partial small bowel resection for ischemic bowel. (4) Supratherapeutic INR Conclusion/Plan: Holding Lovenox and Coumadin for now. INR more than 8.0 on admission. Status post 10 mg of vitamin K p.o. x1. Due to persistent bleeding and high excessive INR will administer Kcentra 2500 units x 1 (5) Valvular heart disease Conclusion/Plan: Patient has a mitral valve disorder of which patient does not know if this is mitral valve regurgitation or mitral valve stenosis with no chest pain or shortness of breath or syncopal events. Patient does have a very noticeable 2 out of 6 systolic murmur that migrates to the left axilla. Patient was going to have a "valve clipping" by Dr. Ellison at [facility]. Will defer off procedure for now due to bleeding event. Patient was transitioned on Lovenox for cardiac procedure (6) Hypertension Conclusion/Plan: Patient on Coreg and will hold for now as patient is has SBP<120 Qualifiers: Hypertension type: essential hypertension Qualified Code(s): I10 - Essential (primary) hypertension (7) History of DVT (deep vein thrombosis) Conclusion/Plan: Patient is anticoagulated with a supratherapeutic INR more than 8.0 (8) History of pulmonary embolism Conclusion/Plan: Patient is anticoagulated with a supratherapeutic INR of >8.0 (9) Melena Conclusion/Plan: Per RN she had mentioned foul-smelling black stools. Patient has mentioned loose stools for several months now.Occult blood testing to be ordered. Consider surgery consult for colonoscopy if positive. 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 (10) Advanced care planning/counseling discussion Conclusion/Plan: Patient's medical conditions, goals of care along with trajectory of illness have been thoroughly discussed and patient chooses to have a DNR with limited intervention in place. Patient realizes that with multiple medical comorbidities such as end-stage renal disease, mitral valve disorder, and the need for cardiological intervention that further complications may arise including bleeding while being on an anticoagulant. Patient family was present during discussion to discuss further options. - Lab Results Lab results reviewed: Yes - EKG Results EKG Interpreted Independently: No Core Measures - Anticipated LOS I expect patient to be DC'd or transferred within 96 hours.: Yes - Issues Hospital Issues and Management Plan: Depending on whether patient has control bleeding and serial H&H's are stable with no evidence ofPatient will likely require 23-hour observation upper or lower GI bleeding serial INR checks with withholding Lovenox/Coumadin and the likelihood of receiving hemodialysis as an outpatient versus transferring to [facility] or [facility]. - DVT/VTE - Prophylaxis VTE/DVT Device ordered at admit?: Yes VTE/DVT Prophylaxis med ordered at admit?: No Not Ordered - Medical Reason: Contraindicated (Patient has an INR more than 8.0 already anticoagulated) - Stroke - Rehab Assessment Rehab services assessment to be ordered?: No Not Ordered - Medical Reason: Not indicated - AMI - Statin at Admit Aspirin Prescribed on Admit: No Not Ordered - Medical Reason: Not indicated
[2018-11-18] MEDS ORDERED: PROTHROMBIN COMPLEX CONC 500 UNIT VIAL IVP SCH (19:00)
[2018-11-18] MEDS ORDERED: hydrALAZINE INJ 20 MG/ML VIAL IVP PRN (19:09)
[2018-11-18] MEDS ORDERED: SODIUM CHLORIDE FLUSH 0.9% 10 ML SYRINGE ONE (19:42)
[2018-11-18] MEDS ORDERED: SODIUM CHLORIDE 0.9% 250 ML IV ONE (19:42)
[2018-11-18 20:05] LABS: HGB - HEMOGLOBIN 9.9 g/dL (14.0-18.0)
[2018-11-18] MEDS ORDERED: HYDROcod/ACETAM 5/325 MG TABLET PO PRN (20:50)
[2018-11-18] MEDS ORDERED: TORSEMIDE 20 MG TABLET PO SCH (21:00)
[2018-11-18] MEDS ORDERED: CALCIUM CARBONATE CHEW 500 MG TABLET PO SCH (21:00)
[2018-11-18] MEDS ORDERED: CARVEDILOL 3.125 MG TABLET PO SCH (22:00)
[2018-11-18] MEDS: LOPERAMIDE 2 MG CAPSULE PO SCH (22:41)
[2018-11-18] MEDS: CALCIUM CARBONATE CHEW 500 MG TABLET PO SCH ×2 (22:41→23:41)
[2018-11-18] MEDS: rOPINIRole 0.25 MG TABLET PO SCH (22:43)
[2018-11-18] MEDS: TORSEMIDE 20 MG TABLET PO SCH (22:43)
[2018-11-18 23:17] LABS: HGB - HEMOGLOBIN 9.2 g/dL (14.0-18.0)
[2018-11-19] MEDS: SODIUM CHLORIDE FLUSH 0.9% 10 ML SYRINGE IVP SCH ×2 (00:43→09:07)
[2018-11-19 06:04] LABS: BASOPHILS % (AUTO) 0.7 %; EOSINOPHILS # (AUTO) 0.2 10^3/uL (0.0-0.7); EOSINOPHILS % (AUTO) 3.6 %; HGB - HEMOGLOBIN 9.5 g/dL (14.0-18.0); LYMPHOCYTES # (AUTO) 0.6 10^3/uL (1.5-3.5); LYMPHOCYTES % (AUTO) 9.7 %; MEAN CORPUSCULAR HEMOGLOBIN 35.2 pg (27.0-31.0); MEAN CORPUSCULAR HGB CONC 33.1 g/dL (32.0-36.0); MEAN CORPUSCULAR VOLUME 106.5 fL (80.0-94.0); MEAN PLATELET VOLUME 8.5 fL (7.4-11.4); MONOCYTES # (AUTO) 0.6 10^3/uL (0.0-1.0); MONOCYTES % (AUTO) 9.3 %; NEUTROPHILS % (AUTO) 76.7 %; PLT - PLATELET COUNT 198 10^3/uL (130-450); RED CELL DISTRIBUTION WIDTH 17.6 % (12.0-15.0); WHITE BLOOD COUNT 6.6 x10^3/uL (4.8-10.8)
[2018-11-19 06:08] LABS: INR 1.1 (0.8-1.2); PT - PROTHROMBIN TIME 12.7 secs (9.9-12.6)
[2018-11-19 06:21] LABS: ALBUMIN 2.9 g/dL (3.2-5.5); CALCIUM 8.2 mg/dL (8.5-10.3); CREATININE 6.4 mg/dL (0.6-1.2); PHOSPHORUS 6.1 mg/dL (2.5-4.6)
[2018-11-19] MEDS: TORSEMIDE 20 MG TABLET PO SCH (06:57)
[2018-11-19] MEDS: CALCIUM CARBONATE CHEW 500 MG TABLET PO SCH ×2 (06:57→11:20)
[2018-11-19] MEDS: LOPERAMIDE 2 MG CAPSULE PO SCH (06:58)
[2018-11-19] MEDS ORDERED: LOPERAMIDE 2 MG CAPSULE PO SCH ×2 (07:00→16:00)
[2018-11-19] MEDS ORDERED: MULTIVITAMIN TABLET PO SCH (08:00)
[2018-11-19] MEDS ORDERED: MIDODRINE 2.5 MG TABLET PO PRN (08:17)
[2018-11-19] MEDS ORDERED: CARVEDILOL 3.125 MG TABLET PO SCH (08:17)
[2018-11-19] MEDS ORDERED: NON FORMULARY MED (Carvedilol [Carvedilol] 25 MG) PO SCH (09:00)
[2018-11-19] MEDS ORDERED: POLYETHYLENE GLYCOL 3350 17 GM PACKET PO SCH (09:00)
[2018-11-19] MEDS ORDERED: FAMOTIDINE 20 MG TABLET PO SCH (09:00)
[2018-11-19] MEDS: rOPINIRole 0.25 MG TABLET PO SCH ×2 (09:03→09:10)
[2018-11-19] MEDS: SODIUM BICARBONATE 650 MG TABLET PO SCH ×2 (09:06→09:14)
[2018-11-19] MEDS: CALCIUM ACETATE 667 MG CAPSULE PO SCH ×2 (09:07→09:14)
[2018-11-19 09:18] VITALS: BP 74/27
--- NOTE | 2018-11-19 10:35 | Discharge Plan ---
Discharge Plan Disposition: Home, Self Care Condition: Stable Diet: Low Sodium (Renal diet) Shower Restrictions: No Driving Restrictions: Yes Assistance Devices: Walker Instruction Topics: Prothrombin Complex Concentrate Human for injection, Coumadin, Anticoagulants Additional Instructions or Follow Up instructions: You were admitted for blood loss anemia as it pertains to your left AV fistula site from recent hemodialysis access. You had an excessive INR of more than 8.0, Which is a measure of how "thin" your blood is and as a result of frequent doses of Lovenox that you took as an outpatient. We were able to control your bleeding from the AV fistula site and you were sutured in the Emergency department along with application of Gelfoam and by administering K-centra along with oral Vitamin K in order to replenish your coagulation factors. Your INR today is now 1.1 and the need for restarting Coumadin is imperative now especially under the circumstance that you have a history of pulmonary embolism and DVTs in the past. We will obtain a stool occult blood test on you to see if you are having gastrointestinal bleeding, however your hemoglobin has stabilized throughout your hospitalization and you do not require a blood transfusion. You are anemic as a result of your end-stage renal disease on top of the fact that your bleeding from your AV fistula site. Again, you are not a candidate for blood transfusion at this time. Meanwhile, you will continue with all your home medications as well as continuation on your hemodialysis schedule Tuesdays, and Saturday. I have reached out to Dr. Mckeon your primary diffusion operator and he has been updated on your disposition and discharge status. In addition, I have reached out to Dr. Ellison who also knows that I will be restarting your home doses of Coumadin. You will be instructed to follow-up with your INR checks at either [facility] or with your primary care provider Sergei Paiz within 1 week's time as you will be monitoring the status of your left AV fistula site and watching if rebleeding occurs. No Smoking: If you smoke, Please STOP! Call for help. Follow-up with: Naomy Paiz DNP [Primary Care Provider] - 1 Week (INR check and follow-up in 1 week)
--- NOTE | 2018-11-19 10:49 | DISCHARGE SUMMARY ---
Discharge Summary Admit Date: 11/18/18 Discharge Date: 11/19/18 Discharging Provider: Dr. 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, Resolved (2) Anticoagulation excessive, Resolved (3) Blood loss anemia, Improved stable (4) Supratherapeutic INR, Resolved (5) Valvular heart disease, Progressive stable (6) Hypertension, Stable (7) History of DVT (deep vein thrombosis), Stable (8) History of pulmonary embolism, Stable (9) Melena, Stable - HPI History of Present Illness: 83-year-old male with a complicated past medical history to include HTN, 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 Ellison over at [facility], however patient had been taking Lovenox in frequent intervals and not as scheduled every 12. Patient did take 4 out of 5 doses of Lovenox. 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 Patient presented With bleeding to the left upper extremity fistula and had been seen earlier in the day and received a total of 5 sutures on the top aspect of fistula and 3 sutures on the bottom aspect of fistula, unable to control bleeding at that time. He was seen in the emergency department last night a dressing was placed he came in this morning with a dressing saturated this morning we sutured to puncture wounds and hemostasis was achieved the patient was given 10 mg of vitamin K for an INR that was not measurable. INR was greater 8.0 on the lab check, Hemoglobin was 11.1 g/dL for which patient did not have precipitous drop on his baseline hemoglobin measuring 9 to 12.0 g/dL, anemia of chronic disease coexisting. Patient's PT was more than 12.6 seconds as well as PTT more than 88.5 seconds. Patient complaining of loose foul-smelling questionable melanotic type stools as RN had noticed smell as well. Dr. Mckeon is patient's primary small arms artillery repairer who admits at [facility], Dr. Ellison his primary assistant men's soccer coach who admits at [facility], PCP is Naomy Paiz. Dr. Mckeon had suggest she is to Dr. Sanchez to admit patient overnight to have bleeding controlled with serial H&H's. Will administer Kcentra as patient continues to bleed from fistula site even after the application of Gelfoam applied to left upper extremity fistula site. - CONSULTS | PROCEDURES Procedures: Kcentra x1, status post AV fistula suturing - HOSPITAL COURSE Hospital Course: Mr. Victor Hugo Hong is a pleasant 83-year-old male with a complicated past medical history to include hypertension, end-stage renal disease on hemodialysis Tuesdays, , and Saturdays, abdominal surgeries for an ischemic bowel and with resultant partial gastrectomy for esophageal cancer, along with resultant small bowel syndrome, chronic anticoagulation with Coumadin from prior PE and DVT, mitral valve disorder requiring a valve Clipping, presented with bleeding to AV fistula site and with supratherapeutic INR with refractory bleeding despite suturing and being administered 1 dose of vitamin K and application of Gelfoam. Patient had been transitioned off of Coumadin and onto Lovenox for bridge in anticipation of a valve clipping however patient continued to bleed and had to seek further evaluation in the ED twice. Patient had an initial hemoglobin of 11.1 which dropped to 9.5 upon discharge with a controlled INR of 1.1 upon discharge. Patient was successfully tamponaded with a pressure dressingace wrap bandage as well as Gelfoam into the left AV fistula site which was also sutured. Patient received 1 dose of Kcentra and eventually bleeding had subsided. Patient was restarted on all home medications to include his Coreg, calcium acetate, Requip, sodium bicarb, Torsemide, midodrine, and jw ramide. Per RN in the ED patient had one bout of melanotic foul-smelling stool, however unclear if this is from his small bowel syndrome from prior surgical resection of small bowel. Patient was restarted on Coumadin as patient's INR was 1.1 on discharge. Patient would be needing follow-up in 1 week with PCP to have INR checked. Primary assistant men's soccer coach Dr. Ellison at [facility] had canceled his valve clipping due to bleeding from left AV fistula site. Dr. Mckeon was contacted and notified and updated on patient's disposition on discharge. Upon discharge patient was hemodynamically stable and with no further bleeding complications. - ALLERGIES Allergies/Adverse Reactions: Allergies Allergy/AdvReac Type Severity Reaction Status Date / Time No Known Drug Allergies Allergy Verified 11/18/18 16:35 - MEDICATIONS Home Medications: Ambulatory Orders Medication Instructions Recorded Confirmed Calcium Acetate 667 mg PO DAILY 07/11/16 11/18/18 Carvedilol 3.125 mg PO BIDWM 07/11/16 11/18/18 Multivitamin [Multivitamins] 1 each PO DAILY 07/11/16 11/18/18 Sodium Bicarbonate 1,000 mg PO TIDWM 07/11/16 11/18/18 Ubidecarenone/Vitamin E Mixed 300 mg PO DAILY 07/11/16 11/18/18 [Wmp60-Vyg E 100 mg-10 Unit Sfg] Hydrocodone/Acetaminophen 1 - 2 each PO Q6H PRN #10 tablet 01/11/17 11/18/18 [Hydrocodone-Acetamin 5-325 mg] Darbepoetin [Aranesp] 80 mcg SUBQ PRN 11/18/18 Loperamide [Imodium] 2 mg PO BID 11/18/18 11/18/18 Midodrine 20 mg PO PRN PRN 11/18/18 11/18/18 Straughn-3/Dha/Epa/Fish Oil [Straughn-3 1 cap PO DAILY 11/18/18 11/18/18 Fish Oil EC 1,000 mg] Torsemide 60 mg PO BID 11/18/18 11/18/18 Warfarin [Coumadin] 1 mg PO 1400 11/18/18 metOLazone [Metolazone] 10 mg PO DAILY 11/18/18 11/18/18 - PHYSICAL EXAM AT DISCHARGE General Appearance: positive: No acute distress, Alert, Other (Frail, cooperative, chronic hearing and vision loss) Eyes Bilateral: positive: Normal inspection, PERRL, EOMI, Other (Mild conjunctival pallor). negative: No scleral icterus ENT: positive: ENT inspection nml, Pharynx nml, No signs of dehydration Neck: positive: Nml inspection, Thyroid nml, No JVD, Trachea midline. negative: Thyromegaly, Carotid bruit Respiratory: positive: Chest non-tender, No respiratory distress, Breath sounds nml Cardiovascular: positive: Regular rate & rhythm, No gallop, Systolic murmur. negative: Irregularly irregular, JVD present, Gallop/S3 Peripheral Pulses: positive: 2+, Other (Left AV fistula thrill palpable with no bleeding, Ilia wrap around arm) Abdomen: positive: Non-tender, No organomegaly, Nml bowel sounds, No distention. negative: Tenderness Rectal: positive: Other (Stool occult pending) Skin: positive: Color nml, No rash, Warm, Pallor. negative: Skin rash Extremities: positive: Non-tender, Full ROM, Nml appearance Neurologic/Psychiatric: positive: Oriented x3, CN's nml (2-12) - LABS Result Diagrams: 11/19/18 05:37 11/19/18 05:37 - QUALITY (Female Hip Fx Only) Was patient sent home on osteoporosis medication?: No (Not indicated) - FOLLOW UP Follow Up: Would follow-up with PCP Naomy Paiz within 1 week for INR check, will follow-up with Dr. Mckeon as scheduled and resume scheduled hemodialysis on Tuesdays, , and Saturdays. Will also follow-up with Dr. Ellison his primary assistant men's soccer coach on rescheduling patients mitral valve clipping and deciding whether to be placed on Lovenox moving forward. - TIME SPENT Time Spent in Discharge (Minutes): 35
[2018-11-19] MEDS ORDERED: WARFARIN 1 MG TABLET PO SCH (17:00)
[2018-11-20] MEDS ORDERED: metOLazone 2.5 MG TABLET PO SCH (08:00)
[2018-11-20] MEDS ORDERED: MIDODRINE 2.5 MG TABLET PO PRN (12:24)
== END 2018-11-19 13:03 | disposition home or self-care (01) ==
LOC: ED 16:16 → MS2 18:14
PROVIDERS: ADMIT Family Medicine; ATTEND Family Medicine
DX: T82.838A Hemorrhage due to vascular prosthetic devices, implants and grafts, initial encounter (principal); T45.511A Poisoning by anticoagulants, accidental (unintentional), initial encounter; D68.32 Hemorrhagic disorder due to extrinsic circulating anticoagulants; D50.0 Iron deficiency anemia secondary to blood loss (chronic); D68.8 Other specified coagulation defects; I12.0 Hypertensive chronic kidney disease with stage 5 chronic kidney disease or end stage renal disease; N18.6 End stage renal disease; Z99.2 Dependence on renal dialysis; I05.9 Rheumatic mitral valve disease, unspecified; Z86.711 Personal history of pulmonary embolism; Z86.718 Personal history of other venous thrombosis and embolism; Z79.01 Long term (current) use of anticoagulants; K92.1 Melena; Z66 Do not resuscitate; Z85.01 Personal history of malignant neoplasm of esophagus; D63.8 Anemia in other chronic diseases classified elsewhere
CPT/HCPCS: 12001; 36415; 80053; 80069; 82274; 83690; 85014; 85018; 85025; 85610; 85730; 93005; 96374; 99283; A9270; C9132; G0378

== ENCOUNTER 2018-12-01 08:00 | Outpatient (CLI) | payer MEDICARE, OTHER | END 2018-12-01 23:59 | disposition home or self-care (01) | LOC: LAB.S 08:00 | PROVIDERS: ATTEND Specialist Research Study | DX: I82.403 Acute embolism and thrombosis of unspecified deep veins of lower extremity, bilateral (principal); Q21.1 Atrial septal defect; I26.99 Other pulmonary embolism without acute cor pulmonale | CPT/HCPCS: 85610 ==

== ENCOUNTER 2018-12-08 08:51 | Outpatient (CLI) | payer MEDICARE, OTHER | END 2018-12-08 23:59 | disposition home or self-care (01) | LOC: LAB.S 08:51 | PROVIDERS: ATTEND Nurse Practitioner | DX: Z51.81 Encounter for therapeutic drug level monitoring (principal); Z79.01 Long term (current) use of anticoagulants | CPT/HCPCS: 85610 ==

== ENCOUNTER 2018-12-15 09:08 | Outpatient (CLI) | payer MEDICARE, OTHER | END 2018-12-15 09:09 | disposition home or self-care (01) | LOC: LAB.S 09:08 | PROVIDERS: ATTEND Registered Nurse | DX: I82.403 Acute embolism and thrombosis of unspecified deep veins of lower extremity, bilateral (principal); Z79.01 Long term (current) use of anticoagulants; Q21.1 Atrial septal defect; I26.99 Other pulmonary embolism without acute cor pulmonale | CPT/HCPCS: 85610 ==

== ENCOUNTER 2018-12-29 09:53 | Outpatient (CLI) | payer MEDICARE, OTHER | END 2018-12-29 09:54 | disposition home or self-care (01) | LOC: LAB.S 09:53 | PROVIDERS: ATTEND Specialist Research Study | DX: I82.403 Acute embolism and thrombosis of unspecified deep veins of lower extremity, bilateral (principal); Q21.1 Atrial septal defect; I26.99 Other pulmonary embolism without acute cor pulmonale ==

== ENCOUNTER 2019-01-02 09:38 | Outpatient (CLI) | payer MEDICARE, OTHER | END 2019-01-02 09:39 | disposition home or self-care (01) | LOC: LAB.S 09:38 | PROVIDERS: ATTEND Specialist Research Study | DX: I82.403 Acute embolism and thrombosis of unspecified deep veins of lower extremity, bilateral (principal); Q21.1 Atrial septal defect; I26.99 Other pulmonary embolism without acute cor pulmonale | CPT/HCPCS: 85610 ==

== ENCOUNTER 2019-01-09 08:40 | Outpatient (CLI) | payer MEDICARE, OTHER | END 2019-01-09 08:41 | disposition home or self-care (01) | LOC: LAB.S 08:40 | PROVIDERS: ATTEND Specialist Research Study | DX: I82.403 Acute embolism and thrombosis of unspecified deep veins of lower extremity, bilateral (principal); Q21.1 Atrial septal defect; I26.99 Other pulmonary embolism without acute cor pulmonale | CPT/HCPCS: 85610 ==

== ENCOUNTER 2019-01-16 11:07 | Outpatient (CLI) | payer MEDICARE, OTHER | END 2019-01-16 11:08 | disposition home or self-care (01) | LOC: LAB.S 11:07 | PROVIDERS: ATTEND Specialist Research Study | DX: I82.403 Acute embolism and thrombosis of unspecified deep veins of lower extremity, bilateral (principal); Q21.1 Atrial septal defect; I26.99 Other pulmonary embolism without acute cor pulmonale | CPT/HCPCS: 85610 ==

== ENCOUNTER 2019-01-20 07:08 | Outpatient (CLI) | payer MEDICARE, OTHER | END 2019-01-20 07:09 | disposition short-term general hospital (02) | LOC: EMS 07:08 | PROVIDERS: ATTEND Surgery | DX: R53.1 Weakness (principal); R06.02 Shortness of breath; R07.89 Other chest pain | CPT/HCPCS: A0425; A0429 ==

== ENCOUNTER 2019-01-30 13:18 | Outpatient (CLI) | payer MEDICARE, OTHER | END 2019-01-30 13:19 | disposition home or self-care (01) | LOC: LAB.S 13:18 | PROVIDERS: ATTEND Specialist Research Study | DX: I82.403 Acute embolism and thrombosis of unspecified deep veins of lower extremity, bilateral (principal); Q21.1 Atrial septal defect; I26.99 Other pulmonary embolism without acute cor pulmonale | CPT/HCPCS: 85610 ==